=== PATIENT | male | born 1960 | race Caucasian/White ===

== ENCOUNTER 2016-10-01 10:06 | Day surgery (SDC) | payer OTHER ==
[2016-09-29 09:03] VITALS: BMI 35.2
[~2016-10-01 10:06] MED LIST: LACTATED RINGERS 1,000 ML IV SCH
[2016-10-01 10:31] VITALS: TEMP 98.3
[2016-10-01] MEDS ORDERED: LIDOCAINE 1% 20 ML VIAL (10MG/ML) FOR IV START INTRADERMA ONE (10:31)
[2016-10-01] MEDS ORDERED: fentaNYL (PF) 50 MCG/ML 2 ML AMP ONE (10:50)
[2016-10-01] MEDS ORDERED: TRIAMCINOLONE ACETONIDE 40 MG/ML 1 ML VIAL ONE (10:50)
[2016-10-01] MEDS ORDERED: MIDAZOLAM 2 MG/2 ML VIAL ONE (10:50)
[2016-10-01] MEDS ORDERED: KETOROLAC 30 MG/ML 1 ML VIAL IVP STA (11:18)
[2016-10-01] MEDS ORDERED: IV FLUID CONTINUATION 1,000 ML IV ONE (11:27)
--- NOTE | 2016-10-01 11:41 | FL ---
Fluoroscopy HISTORY: Pain 23 seconds fluoroscopy time supplied to the referring clinician. 1 intraoperative C-arm images docum ent the procedure. See dictated report from anesthesia.
[2016-10-01 11:44] VITALS: BP 111/56; PULSE 79; RESP 16
--- NOTE | 2016-10-01 13:08 | P.PCN ---
Date of Procedure: 10/01/16 Surgeon: Darnell Zhong Pathology: none sent Condition: stable Disposition: PACU Description of Procedure: PREOPERATIVE DIAGNOSIS: Lumbar spondylosis without myelopathy and facet arthropathy POSTOPERATIVE DIAGNOSIS: Lumbar spondylosis without myelopathy and facet arthropathy PROCEDURES: Left Radiofrequency thermocoagulation, L3, L4, and L5 medial branch , with fluoroscopic guidance. ANESTHESIA: 1% lidocaine plain; Conscious sedation with versed/fentanyl EBL: Minimal PROCEDURE INDICATION: The patient with low back pain secondary to lumbar arthropathy who had more than 50% relief of pain with previous diagnostic lumbar medial branch block with bupivacaine. Patient presents for RFA today; no use of blood thinners. PROCEDURE DESCRIPTION / TECHNIQUE: The patient was seen and identified in the preoperative area. Risks, benefits, complications, and alternatives were discussed with the patient (including but not limited to incomplete pain relief , bleeding, infection, nerve damage, and allergies to medications), the patient agreed to proceed with the procedure and her guardian had previously signed the informed consent after all questions were answered. Patient was taken to the OR and time out was completed to verify proper patient , position, laterality of pain, and allergies. Pt was placed in the prone position. IV was started. Vital signs remained stable throughout the procedure. A pillow was placed under the patients chest to decrease lordosis. The lumbosacral area was prepped and draped in the usual sterile fashion. Vital signs were closely monitored during the procedure. Conscious sedation was used during the procedure to decrease patients anxiety. Using AP and then oblique fluoroscopy, the eye of the Haile dog corresponding to the connection between the superior and transverse articular processes of left L4, L5 and top of the sacrum were identified, marked, and localized with 1% lidocaine. Subsequently, a 18 gauge, 100-mm radiofrequency cannula with a 10-mm active tip was advanced guided by fluoroscopy to each of the eyes of the Haile dog at left L3, L4, and L5 medial branches. Each site then underwent sensory testing at 50 Hz and 0 to 1 volt and motor testing at 2 Hz and 0 to 3 volt with local stimulation, but no radicular symptoms down the legs. Thereafter the left L3, L4, and L5 medial branch sites underwent radiofrequency thermocoagulation at 80 degrees Celsius for 90 seconds after injecting 0.5 ml of PF lidocaine 1%. After thermocoagulation, 1 ml of the block solution containing Kenalog 40 mg and 2 mL of preservative-free normal saline was injected at the left L3, L4, and L5 medial branch levels after negative aspiration of CSF and blood and with no paresthesias. Cannulas were retracted while injecting lidocaine 1% until the needles were removed. At the end of the procedure, the skin was cleansed and bandages were applied. COMPLICATIONS: No acute complications. DISPOSITION / PLANS: The patient was placed in a supine position and transferred to the recovery area in a stable condition for observation and was discharged from the recovery room after meeting discharge criteria. Home discharge instructions given to the patient by the staff. The patient was reexamined prior to discharge. The patient will schedule a follow up in clinic next as both right and left RFAs have been completed.
== END 2016-10-01 11:56 | disposition home or self-care (01) ==
LOC: ORPAIN 10:06
PROVIDERS: ATTEND Anesthesiology
DX: G89.29 Other chronic pain (principal); M54.5 Low back pain; M47.816 Spondylosis without myelopathy or radiculopathy, lumbar region; M46.96 Unspecified inflammatory spondylopathy, lumbar region; I10 Essential (primary) hypertension; I25.10 Atherosclerotic heart disease of native coronary artery without angina pectoris; I25.2 Old myocardial infarction; Z79.82 Long term (current) use of aspirin; Z79.899 Other long term (current) drug therapy
CPT/HCPCS: 64635; 64636 ×2; 99152; J2250; J3301; J3010; J1885

== ENCOUNTER 2016-11-10 06:50 | Day surgery (SDC) | payer OTHER ==
[2016-11-06 11:20] VITALS: BMI 33.7
[2016-11-10] MEDS ORDERED: LIDOCAINE 1% 20 ML VIAL (10MG/ML) FOR IV START SQ ONE (07:41)
[2016-11-10 07:54] VITALS: RESP 16; TEMP 98
[2016-11-10] MEDS ORDERED: LACTATED RINGERS 1,000 ML IV ONE ×2 (08:04→08:15)
[2016-11-10] MEDS ORDERED: MIDAZOLAM 2 MG/2 ML VIAL ONE (08:19)
[2016-11-10] MEDS ORDERED: TRIAMCINOLONE ACETONIDE 40 MG/ML 1 ML VIAL ONE (08:19)
[2016-11-10] MEDS ORDERED: fentaNYL (PF) 50 MCG/ML 2 ML AMP ONE (08:19)
--- NOTE | 2016-11-10 08:43 | P.PCN ---
Date of Procedure: 11/10/16 Surgeon: Darnell Zhong Pathology: none sent Condition: stable Disposition: PACU Description of Procedure: PREOPERATIVE DIAGNOSIS: Lumbar spondylosis without myelopathy and facet arthropathy POSTOPERATIVE DIAGNOSIS: Lumbar spondylosis without myelopathy and facet arthropathy PROCEDURES: Right Radiofrequency thermocoagulation, L3, L4, and L5 medial branch , with fluoroscopic guidance. ANESTHESIA: 1% lidocaine plain; Conscious sedation with versed/fentanyl EBL: Minimal PROCEDURE INDICATION: The patient with low back pain secondary to lumbar arthropathy who had more than 50% relief of pain with previous diagnostic lumbar medial branch block with bupivacaine. Patient presents for RFA today; no use of blood thinners. Patient is off Plavix permanently now. Good relief from left sided lumbar RFA. PROCEDURE DESCRIPTION / TECHNIQUE: The patient was seen and identified in the preoperative area. Risks, benefits, complications, and alternatives were discussed with the patient (including but not limited to incomplete pain relief , bleeding, infection, nerve damage, and allergies to medications), the patient agreed to proceed with the procedure and signed the consent after all questions were answered. Patient was taken to the OR and time out was completed to verify proper patient , position, laterality of pain, and allergies. Pt was placed in the prone position. IV was started. Vital signs remained stable throughout the procedure. A pillow was placed under the patients chest to decrease lordosis. The lumbosacral area was prepped and draped in the usual sterile fashion. Vital signs were closely monitored during the procedure. Conscious sedation was used during the procedure to decrease patients anxiety. Using AP and then oblique fluoroscopy, the eye of the Haile dog corresponding to the connection between the superior and transverse articular processes of right L4, L5 and top of the sacrum were identified, marked, and localized with 1% lidocaine. Subsequently, a 18 gauge, 100-mm radiofrequency cannula with a 10-mm active tip was advanced guided by fluoroscopy to each of the eyes of the Haile dog at right L3, L4, and L5 medial branches. Each site then underwent sensory testing at 50 Hz and 0 to 1 volt and motor testing at 2 Hz and 0 to 3 volt with local stimulation, but no radicular symptoms down the legs. Thereafter the right L3, L4, and L5 medial branch sites underwent radiofrequency thermocoagulation at 80 degrees Celsius for 90 seconds after injecting 0.5 ml of PF lidocaine 1%. After thermocoagulation, 1 ml of the block solution containing Kenalog 40 mg and 2 mL of preservative-free normal saline was injected at the right L3, L4, and L5 medial branch levels after negative aspiration of CSF and blood and with no paresthesias. Cannulas were retracted while injecting lidocaine 1% until the needles were removed. At the end of the procedure, the skin was cleansed and bandages were applied. COMPLICATIONS: No acute complications. DISPOSITION / PLANS: The patient was placed in a supine position and transferred to the recovery area in a stable condition for observation and was discharged from the recovery room after meeting discharge criteria. Home discharge instructions given to the patient by the staff. The patient was reexamined prior to discharge. The patient will schedule a follow up in the clinic in 4-6 weeks.
--- NOTE | 2016-11-10 08:59 | FL ---
EXAMINATION TYPE: FL guided pain mgmt statistic DATE OF EXAM: 11/10/2016 8:44 AM FLUOROSCOPY Fluoroscopy time of 8 seconds was used during lumbar radiofrequency ablation. 3 image/s document/s t he procedure.
[2016-11-10 09:10] VITALS: BP 109/67; PULSE 58
[2016-11-10] MEDS ORDERED: IV FLUID CONTINUATION 1,000 ML IV ONE (09:13)
== END 2016-11-10 10:11 | disposition home or self-care (01) ==
LOC: ORPAIN 06:50
PROVIDERS: ATTEND Anesthesiology
DX: G89.29 Other chronic pain (principal); M47.816 Spondylosis without myelopathy or radiculopathy, lumbar region; M46.96 Unspecified inflammatory spondylopathy, lumbar region; I10 Essential (primary) hypertension; I25.10 Atherosclerotic heart disease of native coronary artery without angina pectoris; Z95.5 Presence of coronary angioplasty implant and graft; K21.9 Gastro-esophageal reflux disease without esophagitis; Z79.82 Long term (current) use of aspirin; Z79.891 Long term (current) use of opiate analgesic; Z79.899 Other long term (current) drug therapy
CPT/HCPCS: 64635; 64636; 99152; J2250; J3301; J3010

== ENCOUNTER → 2016-12-28 | Outpatient (CLI) | payer OTHER ==
[2016-12-28 13:15] VITALS: BP 136/92; PULSE 74; RESP 16; TEMP 98.2
--- NOTE | 2016-12-28 13:31 | P.PN ---
Progress Note - Text Patient returns for followup for chronic back pain with radiation to to hips and neck pain with radiation to right arm. Patient recently underwent bilateral lumbar RFA, which provided nearly 100% relief for for interval since in his low back. He has started to notice neck pain with radiation to his left upper extremity. Patient [facility] for pain with good relief. Patient denies adverse drug effects from medications. Today, pt denies new-onset weakness, bowel/bladder incontinence, or any other signs or symptoms of cauda equina syndrome. There are no signs of acute intoxication, and no indications of medication diversion or overuse. In addition to above, 13-point review of systems is also negative for chest pain , shortness of breath, changes in vision, changes in hearing, new onset weakness , abdominal pain, diarrhea, extreme fatigue, malaise, fever, skin changes, homicidal or suicidal ideation, or bowel or bladder incontinence. Vital Signs: Reviewed in EMR Gen: WDWN, AAOx3, NAD HEENT: NCAT, EOMI, hearing grossly normal Pulm: resp unlabored Abd: soft, NT, ND Neck: supple, trachea midline TTP cervical spine +facet tenderness C-spine (mid to lower cervical facets worst) ROM in flexion lumbar spine: reduced ROM in extension lumbar spine: reduced Lumbar paravertebral tenderness: + Facet loading: + bilateral SI joint tenderness: + bilateral, R > L Ajay's test: + R > L Straight leg raise: neg Neuro: CN II-XII grossly intact Imaging: Reviewed in EMR Assessment: 1. lumbar spondylosis without myelopathy 2. chronic pain syndrome 3. cervical spondylosis without myelopathy Plan: 1. Explanation: Opioid and psychological risk scores were reviewed. Diagnoses , prognoses, and multiple treatment options including but not limited to physical therapy, interventional therapies, adjuvant medical therapies, narcotic medication therapies, and surgery were discussed with the patient and all questions were answered to the patient's satisfaction. 2. Opioid agreement: no opioids prescribed today 3. Counseling: The patient was counseled extensively on SMOKING CESSATION, BODY MASS INDEX, EXERCISE. Specifically, the patient was instructed regarding the importance of smoking cessation, obesity, and exercise in the context of both chronic pain and overall health. 4. Procedures: cervical MBB bilateral 5. Consultations: None 6. Investigations: None 7. Medications: none prescribed 8. Disposition: f/u for procedure as scheduled PQRS measures: 1-Patient's medications are documented in the chart. 2-Tobacco use is positive, counseling given 3-Patient has not had a pneumococcal vaccine. 4-Advanced care planning discussed, patient unable to give. 5-Opioid contract NOT signed with the patient as no opioids prescribed. 6-Pain positive, follow-up visit or procedure scheduled 7-Patient's blood pressure measured and documented, and patient will follow up with the primary care due to hypertension. 8-Patient's weight was measured, and body mass index ABOVE the normal limits, and counseling was done. Patient instructed to follow up with PCP. 9-Patient WAS NOT identified as an unhealthy alcohol user.
== END | disposition home or self-care (01) ==
LOC: PNWHC3 13:00
PROVIDERS: ATTEND Anesthesiology
DX: M47.816 Spondylosis without myelopathy or radiculopathy, lumbar region (principal); M47.812 Spondylosis without myelopathy or radiculopathy, cervical region; G89.4 Chronic pain syndrome
CPT/HCPCS: 99211

== ENCOUNTER 2017-03-10 11:50 | Inpatient (IN) | payer OTHER ==
--- NOTE | 2017-03-10 12:06 | ED ---
General Adult HPI - General Stated complaint: Chest pressure Time Seen by Provider: 03/10/17 11:56 Source: patient, EMS, RN notes reviewed, old records reviewed Mode of arrival: EMS Limitations: no limitations - History of Present Illness Initial comments: This is a 56-year-old male the ER with chest pain. Patient has history of chest pain history of coronary artery disease. Patient sent in from [place] for evaluation regarding his chest pain. Patient states his chest pain is having is left-sided and was sudden, is since been letting up. Patient denies cough or congestion. He does admit prior stent. No recent change in medications. Occasional smoker but he does take all medications as prescribed - Related Data Home Medications Medication Instructions Recorded Confirmed Lisinopril [Zestril] 20 mg PO QAM 03/27/14 03/10/17 Multivitamins, Thera [Multivitamin 1 tab PO DAILY 03/27/14 03/10/17 (formulary)] HYDROcodone/APAP 10-325MG [[place] 1 tab PO Q6H PRN 12/19/14 03/10/17 10-325] Aspirin 325 mg PO DAILY 03/10/17 03/10/17 Gabapentin 800 mg PO TID 03/10/17 03/10/17 [place]-3 Fatty Acids/Fish Oil [Fish 1 cap PO DAILY 03/10/17 03/10/17 Oil 1,000 mg Softgel] Simvastatin [Zocor] 40 mg PO HS 03/10/17 03/10/17 Previous Rx's Medication Instructions Recorded Nitroglycerin Sl Tabs [Nitrostat] 0.4 mg SUBLINGUAL Q5M PRN #25 tab 03/30/14 Allergies Allergy/AdvReac Type Severity Reaction Status Date / Time No Known Allergies Allergy Verified 03/10/17 12:21 Review of Systems ROS Statement: Those systems with pertinent positive or pertinent negative responses have been documented in the HPI. ROS Other: All systems not noted in ROS Statement are negative. Past Medical History Past Medical History: Coronary Artery Disease (CAD), Hyperlipidemia, Hypertension Additional Past Medical History / Comment(s): hx-vertigo (no problem now), degenerative disc back and neck History of Any Multi-Drug Resistant Organisms: None Reported Past Surgical History: Heart Catheterization With Stent, Orthopedic Surgery Additional Past Surgical History / Comment(s): right shoulder, 4 rotator cuff surgeries on right. Total reverse arthroplasty right shoulder. colonoscopy; pain procedures Past Anesthesia/Blood Transfusion Reactions: No Reported Reaction Date of Last Stent Placement:: 03/27/2014 Past Psychological History: No Psychological Hx Reported Smoking Status: Current some day smoker Past Alcohol Use History: Occasional Past Drug Use History: Marijuana - Past Family History Father Family Medical History: Coronary Artery Disease (CAD), Myocardial Infarction ([place] ) Additional Family Medical History / Comment(s): father had PVD. had surgery to repair it woke up from surgery and of a [place] Brother(s) Additional Family Medical History / Comment(s): III bypass Sister(s) Family Medical History: Myocardial Infarction ([place]) General Exam Limitations: no limitations General appearance: alert, in no apparent distress, anxious Head exam: Present: atraumatic, normocephalic, normal inspection Eye exam: Present: normal appearance, PERRL, EOMI. Absent: scleral icterus, conjunctival injection, periorbital swelling ENT exam: Present: normal exam, mucous membranes moist Neck exam: Present: normal inspection. Absent: tenderness, meningismus, lymphadenopathy Respiratory exam: Present: normal lung sounds bilaterally. Absent: respiratory distress, wheezes, rales, rhonchi, stridor Cardiovascular Exam: Present: regular rate, normal rhythm, normal heart sounds. Absent: systolic murmur, diastolic murmur, rubs, gallop, clicks GI/Abdominal exam: Present: soft, normal bowel sounds. Absent: distended, tenderness, guarding, rebound, rigid Extremities exam: Present: normal inspection, full ROM, normal capillary refill. Absent: tenderness, pedal edema, joint swelling, calf tenderness Back exam: Present: normal inspection Neurological exam: Present: alert, oriented X3, CN II-XII intact Psychiatric exam: Present: normal affect, normal mood Skin exam: Present: warm, dry, intact, normal color. Absent: rash Course Vital Signs 03/10/17 03/10/17 11:53 13:16 Temperature 98.9 F Pulse Rate 69 82 Respiratory 18 18 Rate Blood Pressure 146/83 123/73 O2 Sat by Pulse 96 97 Oximetry - Reevaluation(s) Reevaluation #1: 03/10/17 13:46 At this point patient still remains of chest pain, although it is improving, patient concern for resolution or closing of stent as the pain was the same EKG Findings - EKG Comments: EKG Findings:: EKG shows normal sinus rhythm at 74, MS 142, QRS 94, QTC 421 Medical Decision Making - Medical Decision Making 56 LDF for evaluation. Patient does A for evaluation regarding chest pain, history of stent history is coronary artery disease. Patient be admitted for cardiac observation - Lab Data Result diagrams: 03/10/17 12:10 03/10/17 12:10 Lab Results 03/10/17 03/10/17 03/10/17 Range/Units 12:10 12:10 12:10 WBC 8.7 (3.8-10.6) k/uL RBC 5.25 (4.30-5.90) m/uL Hgb 17.0 (13.0-17.5) gm/dL Hct 48.1 (39.0-53.0) % MCV 91.7 (80.0-100.0) fL MCH 32.4 (25.0-35.0) pg MCHC 35.3 (31.0-37.0) g/dL RDW 12.6 (11.5-15.5) % Plt Count 278 (150-450) k/uL Neutrophils % 55 % Lymphocytes % 31 % Monocytes % 6 % Eosinophils % 3 % Basophils % 1 % Neutrophils # 4.8 (1.3-7.7) k/uL Lymphocytes # 2.7 (1.0-4.8) k/uL Monocytes # 0.6 (0-1.0) k/uL Eosinophils # 0.3 (0-0.7) k/uL Basophils # 0.0 (0-0.2) k/uL PT (9.0-12.0) sec INR (<1.2) APTT (22.0-30.0) sec D-Dimer (<0.60) mg/L FEU Sodium 139 (137-145) mmol/L Potassium 4.7 (3.5-5.1) mmol/L Chloride 106 (98-107) mmol/L Carbon Dioxide 23 (22-30) mmol/L Anion Gap 10 mmol/L BUN 14 (9-20) mg/dL Creatinine 0.67 (0.66-1.25) mg/dL Est GFR (MDRD) Af Amer >60 (>60 ml/min/1.73 sqM) Est GFR (MDRD) Non-Af >60 (>60 ml/min/1.73 sqM) Glucose 101 H (74-99) mg/dL Calcium 9.5 (8.4-10.2) mg/dL Magnesium 2.0 (1.6-2.3) mg/dL Total Bilirubin 0.6 (0.2-1.3) mg/dL AST 21 (17-59) U/L ALT 39 (21-72) U/L Alkaline Phosphatase 53 (38-126) U/L Total Creatine Kinase 88 (55-170) U/L CK-MB (CK-2) 2.2 (0.0-2.4) ng/mL CK-MB (CK-2) Rel Index 2.5 Troponin I <0.012 (0.000-0.034) ng/mL NT-Pro-B Natriuret Pep pg/mL Total Protein 7.3 (6.3-8.2) g/dL Albumin 4.5 (3.5-5.0) g/dL Lipase 132 (23-300) U/L 03/10/17 03/10/17 Range/Units 12:10 12:10 WBC (3.8-10.6) k/uL RBC (4.30-5.90) m/uL Hgb (13.0-17.5) gm/dL Hct (39.0-53.0) % MCV (80.0-100.0) fL MCH (25.0-35.0) pg MCHC (31.0-37.0) g/dL RDW (11.5-15.5) % Plt Count (150-450) k/uL Neutrophils % % Lymphocytes % % Monocytes % % Eosinophils % % Basophils % % Neutrophils # (1.3-7.7) k/uL Lymphocytes # (1.0-4.8) k/uL Monocytes # (0-1.0) k/uL Eosinophils # (0-0.7) k/uL Basophils # (0-0.2) k/uL PT 10.3 (9.0-12.0) sec INR 1.0 (<1.2) APTT 22.1 (22.0-30.0) sec D-Dimer 0.50 (<0.60) mg/L FEU Sodium (137-145) mmol/L Potassium (3.5-5.1) mmol/L Chloride (98-107) mmol/L Carbon Dioxide (22-30) mmol/L Anion Gap mmol/L BUN (9-20) mg/dL Creatinine (0.66-1.25) mg/dL Est GFR (MDRD) Af Amer (>60 ml/min/1.73 sqM) Est GFR (MDRD) Non-Af (>60 ml/min/1.73 sqM) Glucose (74-99) mg/dL Calcium (8.4-10.2) mg/dL Magnesium (1.6-2.3) mg/dL Total Bilirubin (0.2-1.3) mg/dL AST (17-59) U/L ALT (21-72) U/L Alkaline Phosphatase (38-126) U/L Total Creatine Kinase (55-170) U/L CK-MB (CK-2) (0.0-2.4) ng/mL CK-MB (CK-2) Rel Index Troponin I (0.000-0.034) ng/mL NT-Pro-B Natriuret Pep 16 pg/mL Total Protein (6.3-8.2) g/dL Albumin (3.5-5.0) g/dL Lipase (23-300) U/L - Radiology Data Radiology results: report reviewed (Chest x-ray is negative for acute disease), image reviewed Critical Care Time Critical Care Time: Yes Total Critical Care Time: 31 Disposition Clinical Impression: Unstable angina pectoris, Chest pain Disposition: ADMITTED IP TO THIS [facility] Condition: Undetermined Instructions: Chest Pain (ED) Referrals: Maximino Burrows DO [Primary Care Provider] - 1-2 days
[2017-03-10 12:34] LABS: Basophils % (A) 1 %; CH 32.1; CHCM 35.2; Eosinophils # (A) 0.3 k/uL (0-0.7); Eosinophils % (A) 3 %; HCT 48.1 % (39.0-53.0); HDW 2.55; Luc # (Auto) 0.34; Luc % (Auto) 4; Lymphocytes # (A) 2.7 k/uL (1.0-4.8); Lymphocytes % (A) 31 %; MCH 32.4 pg (25.0-35.0); MCHC 35.3 g/dL (31.0-37.0); MCV 91.7 fL (80.0-100.0); Mean Platelet Volume 6.7; Monocytes # (A) 0.6 k/uL (0-1.0); Monocytes % (A) 6 %; Neutrophils # (A) 4.8 k/uL (1.3-7.7); Neutrophils % (A) 55 %; RBC 5.25 m/uL (4.30-5.90); RDW 12.6 % (11.5-15.5); WBC 8.7 k/uL (3.8-10.6); WBC (Perox) 8.23
[2017-03-10 12:45] LABS: ALT 39 U/L (21-72); AST 21 U/L (17-59); Alkaline Phosphatase 53 U/L (38-126); Anion Gap 10 mmol/L; Blood Urea Nitrogen 14 mg/dL (9-20); Calcium 9.5 mg/dL (8.4-10.2); Carbon Dioxide 23 mmol/L (22-30); Chloride 106 mmol/L (98-107); Glucose 101 mg/dL (74-99); Non-African American GFR(MDRD) >60 (>60 ml/min/1.73 sqM); Potassium 4.7 mmol/L (3.5-5.1); Sodium 139 mmol/L (137-145); Total Bilirubin 0.6 mg/dL (0.2-1.3); Total Protein 7.3 g/dL (6.3-8.2)
--- NOTE | 2017-03-10 12:50 | XR ---
EXAMINATION TYPE: XR chest 2V DATE OF EXAM: 03/10/2017 COMPARISON: 05/27/2015 INDICATION: Chest pain TECHNIQUE: Frontal and lateral views of the chest are obtained. FINDINGS: The heart size is normal. The pulmonary vasculature is normal. The lungs are clear. Right shoulder prosthesis is present. IMPRESSION: 1. No acute pulmonary process.
[2017-03-10 12:52] LABS: Creatine Kinase 88 U/L (55-170)
[2017-03-10 13:06] LABS: Creatine Kinase MB 2.2 ng/mL (0.0-2.4); Troponin I <0.012 ng/mL (0.000-0.034)
[2017-03-10] MEDS ORDERED: HYDROcodone/APAP 10-325MG 1 EACH TAB PO STA (13:40)
[2017-03-10] MEDS ORDERED: GABAPENTIN 400 MG CAP PO STA (13:40)
[2017-03-10] MEDS ORDERED: NITROGLYCERIN SL TABS 0.4 MG TAB SUBLINGUAL PRN (13:44)
[2017-03-10] MEDS ORDERED: MORPHINE SULFATE 4 MG/ML SYRINGE IV PRN (13:44)
[2017-03-10 13:45] LABS: Partial Thromboplastin Time 22.1 sec (22.0-30.0); Prothrombin Time 10.3 sec (9.0-12.0)
--- NOTE | 2017-03-10 15:22 | P.CRDCN ---
History of Present Illness Consult date: 03/10/17 History of present illness: This is a 56-year-old pleasant male. Past medical history significant for CAD with stent to the mid LAD, essential hypertension and hyperlipidemia. Patient presents with complaints of intermittent sharp precordial chest pain. He states this pain comes and goes very quickly and is not associated with activity. He states when this comes about he becomes mildly short of breath, diaphoretic and nauseous. He states he went and saw his PCP this morning and they sent him here for further evaluation. EKG done shows from a sinus mechanism, rate of 74 beats per minute with nonspecific T-wave abnormality. Troponins are normal x 1. Chest x-ray showed no cardiopulmonary process. Most recent echo dated 11/27/2016 performed in the office indicates preserved left ventricular function with an ejection fraction of 55% with mild concentric left ventricular hypertrophy. Patient also had a Lexiscan 11/03/2016 which was negative for ischemia. His most recent cardiac catheterization was performed in May 2015 which showed a patent mid LAD stent, otherwise normal coronary arteries. Review of Systems Extensive review of systems performed, negative except mentioned in HPI. Past Medical History Past Medical History: Coronary Artery Disease (CAD), Hyperlipidemia, Hypertension Additional Past Medical History / Comment(s): hx-vertigo (no problem now), degenerative disc back and neck History of Any Multi-Drug Resistant Organisms: None Reported Past Surgical History: Heart Catheterization With Stent, Orthopedic Surgery Additional Past Surgical History / Comment(s): right shoulder, 4 rotator cuff surgeries on right. Total reverse arthroplasty right shoulder. colonoscopy; pain procedures Past Anesthesia/Blood Transfusion Reactions: No Reported Reaction Date of Last Stent Placement:: 03/27/2014 Past Psychological History: No Psychological Hx Reported Smoking Status: Current some day smoker Past Alcohol Use History: Occasional Past Drug Use History: Marijuana - Past Family History Father Family Medical History: Coronary Artery Disease (CAD), Myocardial Infarction (AL ) Additional Family Medical History / Comment(s): father had PVD. had surgery to repair it woke up from surgery and of a AL Brother(s) Additional Family Medical History / Comment(s): III bypass Sister(s) Family Medical History: Myocardial Infarction (AL) Medications and Allergies Home Medications Medication Instructions Recorded Confirmed Type Lisinopril [Zestril] 20 mg PO QAM 03/27/14 03/10/17 History Multivitamins, Thera [Multivitamin 1 tab PO DAILY 03/27/14 03/10/17 History (formulary)] Nitroglycerin Sl Tabs [Nitrostat] 0.4 mg SUBLINGUAL Q5M PRN #25 tab 03/30/1412/19 Rx HYDROcodone/APAP 10-325MG [[place] 1 tab PO Q6H PRN 12/19/14 03/10/17 History 10-325] Aspirin 325 mg PO DAILY 03/10/17 03/10/17 History Gabapentin 800 mg PO TID 03/10/17 03/10/17 History [place]-3 Fatty Acids/Fish Oil [Fish 1 cap PO DAILY 03/10/17 03/10/17 History Oil 1,000 mg Softgel] Simvastatin [Zocor] 40 mg PO HS 03/10/17 03/10/17 History Allergies Allergy/AdvReac Type Severity Reaction Status Date / Time No Known Allergies Allergy Verified 03/10/17 12:21 Physical Exam Vitals: Vital Signs Temp Pulse Pulse Resp BP BP Pulse Ox 03/10/17 14:23 98.0 F 72 18 140/80 96 03/10/17 14:08 97.9 F 77 18 123/80 98 03/10/17 13:16 82 18 123/73 97 03/10/17 11:53 98.9 F 69 18 146/83 96 Intake and Output 03/09/17 03/10/17 03/10/17 22:59 06:59 14:59 Other: Weight 107.7 kg Patient Weight 03/11/17 06:59 Weight 107.7 kg GENERAL: This is a 56-year-old pleasant gentleman in no apparent distress at the time of my examination. Obese. HEENT: Head is atraumatic, normocephalic. Pupils are equal, round. Sclerae anicteric. Conjunctivae are clear. Mucous membranes of the mouth are moist. Neck is supple. There is no jugular venous distention. No carotid bruit is heard. LUNGS: Clear to auscultation no wheezes, rales or rhonchi. No chest wall tenderness is noted on palpation or with deep breathing. HEART: Regular rate and rhythm without murmurs, rubs or gallops. S1 and S2 heard. ABDOMEN: Soft, nontender. Bowel sounds are heard. No organomegaly noted. EXTREMITIES: 2+ peripheral pulses with no evidence of peripheral edema and no calf tenderness noted. NEUROLOGIC: Patient is awake, alert and oriented x3. Results 03/10/17 12:10 03/10/17 12:10 Cardiac Enzymes 03/10/17 03/10/17 Range/Units 12:10 12:10 AST 21 (17-59) U/L CK-MB (CK-2) 2.2 (0.0-2.4) ng/mL Troponin I <0.012 (0.000-0.034) ng/mL Coagulation 03/10/17 Range/Units 12:10 PT 10.3 (9.0-12.0) sec APTT 22.1 (22.0-30.0) sec CBC 03/10/17 Range/Units 12:10 WBC 8.7 (3.8-10.6) k/uL RBC 5.25 (4.30-5.90) m/uL Hgb 17.0 (13.0-17.5) gm/dL Hct 48.1 (39.0-53.0) % Plt Count 278 (150-450) k/uL Comprehensive Metabolic Panel 03/10/17 Range/Units 12:10 Sodium 139 (137-145) mmol/L Potassium 4.7 (3.5-5.1) mmol/L Chloride 106 (98-107) mmol/L Carbon Dioxide 23 (22-30) mmol/L BUN 14 (9-20) mg/dL Creatinine 0.67 (0.66-1.25) mg/dL Glucose 101 H (74-99) mg/dL Calcium 9.5 (8.4-10.2) mg/dL AST 21 (17-59) U/L ALT 39 (21-72) U/L Alkaline Phosphatase 53 (38-126) U/L Total Protein 7.3 (6.3-8.2) g/dL Albumin 4.5 (3.5-5.0) g/dL Current Medications Generic Name Dose Route Start Last Admin Trade Name Freq PRN Reason Stop Dose Admin Aspirin 325 mg 03/11/17 09:00 Aspirin PO DAILY AMEENA Morphine Sulfate 4 mg 03/10/17 13:44 Morphine Sulfate (Inj) IV Q5M PRN Chest Pain Nitroglycerin 0.4 mg 03/10/17 13:44 Nitrostat SUBLINGUAL Q5M PRN Chest Pain Intake and Output 03/09/17 03/10/17 03/10/17 22:59 06:59 14:59 Other: Weight 107.7 kg Patient Weight 03/11/17 06:59 Weight 107.7 kg 03/10/17 12:10 03/10/17 12:10 EKG Interpretations (text) EKG indicates normal sinus mechanism with nonspecific ST and T-wave abnormalities with a rate of 74 bpm. Assessment and Plan Plan: ASSESSMENT 1. Chest pain, atypical. 2. Coronary artery disease, history of stent to the mid LAD 3. Essential hypertension 4. Dyslipidemia PLAN Repeat EKG in the morning, continuous telemetry monitoring, obtain 2 more sets of cardiac enzymes. Nurse Practitioner note has been reviewed, I agree with a documented findings and plan of care. Patient was seen and examined.
[2017-03-10] MEDS ORDERED: HEPARIN SODIUM,PORCINE 5,000 UNIT/ML 1 ML VIAL IV PRN (16:56)
[2017-03-10] MEDS ORDERED: HEPARIN SODIUM,PORCINE 5,000 UNIT/ML 1 ML VIAL IV ONE (16:56)
[2017-03-10] MEDS ORDERED: HEPARIN SODIUM,PORCINE/D5W PMX 25,000 UNIT in DEXTROSE/WATER 1 500ML.BAG IV SCH (17:00)
[2017-03-10] MEDS ORDERED: ALPRAZolam 0.25 MG TAB PO PRN (17:29)
[2017-03-10] MEDS ORDERED: TEMAZEPAM 15 MG CAP PO PRN (17:29)
[2017-03-10] MEDS ORDERED: SODIUM CHLORIDE 0.9% 1,000 ML IV SCH (17:30)
[2017-03-10] MEDS: HYDROmorphone 1 MG/ML 1 ML SYRINGE IVP PRN ×2 (18:36→22:55)
[2017-03-10] MEDS: NITROGLYCERIN OINT 1 INCH/GM PACKET TOPICAL SCH (18:47)
[2017-03-10 19:44] LABS: Creatine Kinase 80 U/L (55-170)
[2017-03-10 19:55] LABS: Creatine Kinase MB 1.9 ng/mL (0.0-2.4); Troponin I <0.012 ng/mL (0.000-0.034)
[2017-03-10] MEDS: HYDROcodone/APAP 10-325MG 1 EACH TAB PO PRN (20:11)
[2017-03-10] MEDS: GABAPENTIN 400 MG CAP PO SCH (20:12)
[2017-03-10] MEDS: METOPROLOL TARTRATE 12.5 MG TAB PO SCH (20:14)
[2017-03-10] MEDS ORDERED: ATORVASTATIN 20 MG TAB PO SCH (21:00)
[2017-03-11 01:03] LABS: Creatine Kinase 87 U/L (55-170)
[2017-03-11 01:16] LABS: Creatine Kinase MB 1.9 ng/mL (0.0-2.4); Troponin I <0.012 ng/mL (0.000-0.034)
[2017-03-11] MEDS: NITROGLYCERIN OINT 1 INCH/GM PACKET TOPICAL SCH ×3 (01:43→13:12)
--- NOTE | 2017-03-11 05:43 | HP ---
HISTORY AND PHYSICAL CHIEF COMPLAINT: Chest pain. HISTORY OF PRESENT ILLNESS: This 56-year-old gentleman with a past medical history of CAD, stent, history of hypertension, hyperlipidemia, history of nicotine dependence, history of THC being followed by Dr. Burrows in [place] [facility] in the outpatient setting is apparently having on and off chest discomfort in the anterior part of the chest, which lasted for a few minutes and relieved by itself without any radiation and without any other associated symptoms. Because of increased symptoms, patient came to [facility] and admitted for evaluation and treatment. The patient also noted some relation with smoking. Otherwise there is no history of any fever, rigors. No history of any headache, loss of consciousness or seizures. Patient apparently smokes about 1 pack per week mainly only on the weekends. PAST MEDICAL HISTORY: History of CAD, stent, hypertension, hyperlipidemia, history of vertigo. MEDICATIONS PRIOR TO ADMISSION: 1. [place]-3 fatty acids 1 p.o. daily. 2. Nitrostat 0.4 daily. 3. Multivitamin 1 p.o. daily. 4. Gabapentin 800 mg p.o. t.i.d. 5. Aspirin 325 mg daily. 6. Zocor 40 mg q.h.s. 7. Zestril 20 mg q.a.m. 8. [place] 10 mg q.6 p.r.n. ALLERGIES: None. FAMILY HISTORY: History of heart disease in the father who at the age of 60, in the late 60s and brother who had heart attack in his late 50s. SOCIAL HISTORY: History of alcohol and smoking mainly on the weekends. History of THC. REVIEW OF SYSTEMS: ENT: No diminished hearing or vision. CARDIOVASCULAR: As mentioned earlier. RESPIRATORY: As mentioned earlier. GI: No nausea, vomiting. : No dysuria. NERVOUS SYSTEM: No numbness or weakness. ALLERGY/IMMUNOLOGY: No asthma or hayfever. MUSCULOSKELETAL: As mentioned earlier. HEMATOLOGY/ONCOLOGY: No history of anemia. ENDOCRINE: No history of diabetes or hypothyroidism. CONSTITUTIONAL: As mentioned earlier. DERMATOLOGY: Negative. RHEUMATOLOGY: Negative. PSYCHIATRY: As mentioned earlier. PHYSICAL EXAMINATION: The patient is alert and oriented x3. The pulse is 72, blood pressure 140/80, respirations 18, temperature 98 degrees, pulse ox 96% on room air. HEENT: Conjunctivae normal. NECK: No jugular venous distention. CARDIOVASCULAR: S1 and S2 muffled. RESPIRATORY: Breath sounds diminished at the bases. No rhonchi and no crackles. ABDOMEN: Soft, nontender, no mass palpable. No hepatomegaly. LEGS: No edema. No swelling. NERVOUS SYSTEM; Higher functions as mentioned. Moves all 4 limbs. No focal motor or sensory deficits. LYMPHATICS: No lymphadenopathy of the neck, axillae or groin. SKIN: No ulcers, rashes or bleeding. LAB: The CBC is within normal limits. CMP glucose 101. Troponin is less than 0.012. The EKG showed ST-T changes. ASSESSMENT: 1. Chest pain, possible unstable angina. 2. History of coronary artery disease, stent. 3. History of hypertension. 4. Hyperlipidemia. 5. History of nicotine dependence. 6. History of degenerative joint disease. 7. Family history of coronary artery disease. RECOMMENDATIONS AND DISCUSSION: In this 56-year-old gentleman who presented with multiple medical problems will monitor the patient closely. Continue the current medications. Continue the symptomatic treatment. We will continue with unstable angina protocol, otherwise antiplatelet agents, IV heparin. Cardiology consultation, rule out myocardial infarction. Otherwise I would recommend continue the current medication and possible cardiac catheterization versus stress test. Guarded prognosis because of multiple complex medical issues. Further recommendations to follow. A copy of dictation forwarded to Dr. Burrows who is the primary care physician. Discussed with the patient, understands and agrees. ORTEGA / DINHN: [id number] /
[2017-03-11] MEDS ORDERED: PANTOPRAZOLE 40 MG TABLET PO SCH (07:30)
[2017-03-11] MEDS: METOPROLOL TARTRATE 12.5 MG TAB PO SCH (07:58)
[2017-03-11] MEDS: GABAPENTIN 400 MG CAP PO SCH ×2 (07:58→16:24)
[2017-03-11] MEDS ORDERED: ATORVASTATIN 80 MG TAB PO STA (08:21)
[2017-03-11] MEDS ORDERED: SODIUM CHLORIDE 0.9% 1,000 ML in EMPTY BAG 1 BAG IV ONE (08:21)
[2017-03-11] MEDS: HYDROcodone/APAP 10-325MG 1 EACH TAB PO PRN ×2 (08:56→16:21)
[2017-03-11] MEDS ORDERED: NICOTINE 14MG/24HR PATCH TRANSDERM SCH (09:00)
[2017-03-11] MEDS ORDERED: ASPIRIN 325 MG TAB PO SCH (09:00)
[2017-03-11] MEDS ORDERED: LISINOPRIL 20 MG TAB PO SCH (09:00)
--- NOTE | 2017-03-11 09:23 | PN ---
PROGRESS NOTE Mr. Colin was seen by my nurse practitioner, Lima Fernandez. He was here with chest discomfort. Initial troponin is normal. He has history of previous LAD stent in 2013 that was patent a year later. Symptoms of chest discomfort with some mild diaphoresis suggest myocardial ischemia. There are also EKG changes which are nonspecific but ischemia cannot be excluded. He is hemodynamically stable. Free of chest pain. Resting comfortably. PHYSICAL EXAM: Unremarkable. I am recommending that we initiate him on IV heparin, continue his medications including beta blockers, keep him n.p.o. and consider cardiac catheterization tomorrow. Serial troponins will be performed. Rationale, risks, benefits, options related to coronary angiography was explained to the patient. Dr. Kinsey would perform the procedure tomorrow. Patient and his family are in agreement and wished to proceed with the procedure which will most likely be performed tomorrow but I will make a definitive decision based on his clinical course and troponin numbers. MMODL / IJN: [id number] /
[2017-03-11 09:40] LABS: Aty Lym Flag Slight; CH 31.7; CHCM 33.4; HDW 2.54; HGB 15.7 gm/dL (13.0-17.5); MCH 31.8 pg (25.0-35.0); MCHC 33.5 g/dL (31.0-37.0); MCV 95.1 fL (80.0-100.0); Mean Platelet Volume 6.6; RBC 4.94 m/uL (4.30-5.90); RDW 12.5 % (11.5-15.5); WBC 8.2 k/uL (3.8-10.6); WBC (Perox) 8.47
[2017-03-11 09:50] LABS: Anion Gap 8 mmol/L; Blood Urea Nitrogen 18 mg/dL (9-20); Calcium 8.9 mg/dL (8.4-10.2); Carbon Dioxide 24 mmol/L (22-30); Chloride 104 mmol/L (98-107); Cholesterol 173 mg/dL (<200); Glucose 101 mg/dL (74-99); HDL Cholesterol 42 mg/dL (40-60); Non-African American GFR(MDRD) >60 (>60 ml/min/1.73 sqM); Potassium 4.8 mmol/L (3.5-5.1); Sodium 136 mmol/L (137-145)
[2017-03-11] MEDS ORDERED: LIDOCAINE 2% INJ 20 MG/ML (20 ML MDV) ONE (09:56)
[2017-03-11] MEDS ORDERED: IV FLUID CONTINUATION 1,000 ML IV ONE (10:04)
[2017-03-11] MEDS ORDERED: diphenhydrAMINE 50 MG/ML 1 ML VIAL ONE (10:19)
[2017-03-11] MEDS ORDERED: MIDAZOLAM 2 MG/2 ML VIAL ONE (10:19)
[2017-03-11] MEDS ORDERED: diphenhydrAMINE 50 MG/ML 1 ML VIAL IVP ONE (10:25)
[2017-03-11] MEDS ORDERED: fentaNYL (PF) 50 MCG/ML 2 ML AMP ONE (10:26)
[2017-03-11] MEDS ORDERED: MIDAZOLAM 2 MG/2 ML VIAL IV ONE (10:27)
[2017-03-11] MEDS ORDERED: fentaNYL (PF) 50 MCG/ML 2 ML AMP IV ONE (10:28)
[2017-03-11] MEDS ORDERED: LIDOCAINE 2% INJ 20 MG/ML SQ ONE (10:32)
[2017-03-11] MEDS ORDERED: RX INFO: IV CONTRAST WAS GIVEN 1 EACH MISC MISCELLANE PRN (10:50)
[2017-03-11] MEDS ORDERED: IOHEXOL 350 MG/ML 125ML BOTTLE INJ ONE (10:50)
--- NOTE | 2017-03-11 10:55 | P.OP ---
Date of Procedure: 03/11/17 Preoperative Diagnosis: Postoperative Diagnosis: Procedure(s) Performed: Implants: Indications for Procedure: Unstable angina Operative Findings: Referring Physician: [Ez] Indication:un Stable angina Procedure Note: [] After obtaining informed consent left heart catheterization and coronary angiogram were performed via the right femoral artery using standard Tere catheters. Patient tolerated the procedure well without any obvious immediate complications. A femoral angiogram was obtained and decision was made for manual hemostasis There was a 60-70% stenosis involving the common femoral artery. Findings: [] Hemodynamics: Left ventricular end-diastolic pressure is elevated at 24 mm Left Ventriculogram: [Not performed] Angiographic Data:] #1 Left Main Coronary Artery: [Normal size vessel and is free of stenosis] #2 Left Anterior Descending Coronary Artery: There is a mild atherosclerotic plaque in mid LAD unchanged compared to prior cardiac catheterization #3 Circumflex Coronary Artery: [Nondominant vessel and is free of stenosis] #4 Right Coronary Artery: [Large dominant vessel and is free of stenosis] Conclusions: #1: Mild nonobstructive coronary artery disease involving mid LAD #2: Elevated left ventricle end-diastolic pressure #3 right common femoral artery stenosis Plan: Patient's chest discomfort is noncardiac in origin Has evidence of peripheral vascular disease with a stenosis in the common femoral artery this will be addressed down the road Description of Procedure:
[2017-03-11] MEDS ORDERED: SODIUM CHLORIDE 0.9% 1,000 ML IV SCH (11:00)
[2017-03-11] MEDS ORDERED: MULTIVITAMINS, THERA 1 EACH TAB PO SCH (12:00)
[2017-03-11 12:20] LABS: Add Differential Manual Differential
[2017-03-11 12:22] LABS: Myelocytes % 1 %; Nucleated Red Blood Cells 0 /100 WBC (0-0)
[2017-03-11 12:23] LABS: Manual Review Performed; Total Cells Counted 200
[2017-03-11] MEDS: HYDROmorphone 1 MG/ML 1 ML SYRINGE IVP PRN ×2 (12:26→19:05)
--- NOTE | 2017-03-11 15:42 | US ---
EXAMINATION TYPE: US abdomen limited DATE OF EXAM: 03/11/2017 COMPARISON: NONE CLINICAL HISTORY: r/o retroperitoneal bleed post cardiac cath, back pain. No free fluid visualized at this time. IMPRESSION: No hemorrhage or free fluid identified
[2017-03-11 15:49] VITALS: TEMP 98.2
[2017-03-11 19:47] VITALS: BP 140/64; PULSE 77; RESP 16
--- NOTE | 2017-03-11 21:32 | PN ---
PROGRESS NOTE DATE OF SERVICE: 03/11/2017 This 56-year-old gentleman who was admitted with chest pain also underwent a cardiac catheterization today. The cardiac catheter showed mild atherosclerotic plaque in the LAD unchanged from previously. Otherwise, the patient was also suspected to have right common femoral artery stenosis. No chest pain or palpitations. No fever. EXAM: Alert and oriented x 3. Pulse 70, blood pressure 100/65, respirations 16, temperature 97.9, pulse ox 92% on 2L. HEENT: Conjunctivae normal. NECK: No jugular venous distention. CARDIAC: S1, S2 muffled. RESPIRATORY: Breath sounds diminished in the bases. A few scattered rhonchi. No crackles. ABDOMEN: Soft, nontender. No mass palpable. Status post cardiac cath on the left groin. NERVOUS SYSTEM: No focal deficits. LABS: At this time show CBC within normal limits. Otherwise sodium 136 and triglycerides of 217. ASSESSMENT: 1. Chest pain, possible unstable angina. 2. History of coronary artery disease with stent. 3. Status post cardiac catheterization showing mild coronary artery disease. 4. Right femoral artery stenosis and peripheral vascular disease. 5. History of hypertension. 6. Hyperlipidemia. 7. History of continued ongoing nicotine dependence. 8. History of degenerative joint disease. 9. Family history of coronary artery disease. RECOMMENDATION AND DISCUSSION: Recommend to continue current medications and symptomatic treatment with antiplatelet agents. Continue with current medications. Closely follow with Cardiology. The prognosis is guarded. Smoking cessation has been recommended. IV fluids have also been given. Will follow the patient closely with Cardiology. Further recommendations to follow. Prognosis guarded. MMODL / IJN: [id number] /
--- NOTE | 2017-03-14 11:31 | DS ---
DISCHARGE SUMMARY FINAL DIAGNOSES: 1. Chest pain possible unstable angina. 2. History of coronary artery disease, stent. 3. Status post cardiac cath showing mild coronary artery disease. 4. Right femoral artery stenosis and peripheral vascular disease. 5. History of hypertension. 6. Hyperlipidemia. 7. Continued ongoing nicotine dependence. 8. History of degenerative joint disease. 9. Family history of coronary artery disease. DISCHARGE DISPOSITION: The patient being discharged in stable condition with guarded prognosis. HISTORY OF PRESENT ILLNESS: This 56 -year-old gentleman with past medical history of multiple medical problems, admitted with chest pain. Cardiology performed a cardiac cath. Findings as above. Cardiology cleared the patient for discharge. PHYSICAL EXAMINATION: On exam, vital signs are stable. Cardiovascular S1, S2 muffled. Abdomen is soft. Central nervous system: No focal deficits. DISCHARGE ADVICE: 1. Diet is cardiac diet. 2. Activity limited until follow up. 3. Follow up with Dr. Burrows in 2-3 days. 4. Follow up with Dr. Kinsey as advised. MEDICATIONS: 1. Ecotrin 325 mg p.o. daily. 2. Gabapentin 800 mg p.o. t.i.d. 3. Hydrocodone 10 mg q.6h p.r.n. 4. Zestril 20 mg q.a.m. 5. Multivitamin 1 p.o. daily. 6. Habitrol 14 daily. 7. Nitro 0.4 sublingual p.r.n. 8. [place]-3 fatty acids one p.o. daily. 9. Zocor 40 mg q.h.s. Please send a copy of dictation to my office and as well as Dr. Burrows's office. MMODL / IJN: [id number] /
== END 2017-03-11 19:45 | disposition home or self-care (01) | DRG 287 ==
LOC: EC 11:50 → 3OBS 13:44 → OBSVTOIN 03-11 15:03
PROVIDERS: ADMIT Hospitalist; ATTEND Hospitalist
PROC: B2111ZZ Fluoroscopy of Multiple Coronary Arteries using Low Osmolar Contrast (ICD-10-PCS; 2017-03-11)
PROC: 4A023N7 Measurement of Cardiac Sampling and Pressure, Left Heart, Percutaneous Approach (ICD-10-PCS; principal; 2017-03-11 08:30)
DX: I25.110 Atherosclerotic heart disease of native coronary artery with unstable angina pectoris (principal); I10 Essential (primary) hypertension; E78.5 Hyperlipidemia, unspecified; F17.200 Nicotine dependence, unspecified, uncomplicated; I70.201 Unspecified atherosclerosis of native arteries of extremities, right leg; I73.9 Peripheral vascular disease, unspecified; Z79.82 Long term (current) use of aspirin; Z79.899 Other long term (current) drug therapy; Z95.5 Presence of coronary angioplasty implant and graft; Z82.49 Family history of ischemic heart disease and other diseases of the circulatory system
CPT/HCPCS: 36415; 71020; 76705; 80048; 80053; 80061; 82550; 82553; 83690; 83735; 83880; 84484; 85025; 85379; 85610; 85730; 93005; 93458; 94760; 96361; 96365; 96366; 96375; 96376; 99291

== ENCOUNTER → 2018-08-23 | Outpatient (CLI) | payer OTHER ==
[2018-08-23 13:05] VITALS: BP 141/79; PULSE 86; RESP 16; TEMP 98.2
--- NOTE | 2018-08-23 13:37 | P.PN ---
Subjective Progress Note Date: 08/23/18 Huy is a 49-year-old gentleman who presents today for continued low back pain. We have seen him in the past for his low back pain and he has had successful medial branch blocks and radiofrequency ablations. Over the past couple years he was sent to see couple different surgeons for his low back pain. One is surgery recommend at surgery on his low back a second surgery did not recommend surgery and he wants to avoid having surgery moving forward. He is here today to evaluate his lumbar spine for interventional procedures. He doesn't like taking very much pain medications. He is back pain is across his low back and into his thighs. He denies any radicular symptoms shooting into his legs but can happen with certain movements. He feels that his back pain causing muscle pain during the day is worse towards the end of the day. He is disabled and does not work at this time. He is a . Objective - Vital Signs Vital signs: Vital Signs Temp 98.2 F 08/23/18 12:56 Pulse 86 08/23/18 12:56 Resp 16 08/23/18 12:56 BP 141/79 08/23/18 12:56 Pulse Ox 98 08/23/18 12:56 Intake & Output 08/22/18 08/23/18 08/23/18 18:59 06:59 18:59 Weight 106.594 kg - Exam General: Awake and alert oriented 3 no distress Respiratory exam: No audible wheezing no accessory muscle usage Cardiovascular exam: regular rate, palpable bilateral pulses, no lower extremity edema Abdominal exam: No distention nontender to palpation Cervical spine: Normal alignment, Spurling's negative, facet loading negative Lumbar spine: Loss of lumbar lordosis, normal alignment, tender to palpation over bilateral paraspinal muscles, facet loading is positive bilaterally. Straight leg raise is negative. Sacroiliac joints: Nontender to palpation, GREGORY is negative, [place] negative Neuro exam: Normal sensation in bilateral upper extremities, deep tendon reflexes are 2+ bilateral upper extremities. Normal sensation in bilateral lower extremities. Deep tendon reflexes are 1+ bilateral hamstrings 2+ Achilles reflex Psych exam: Cooperative, appropriate mood Assessment and Plan Assessment: Lumbar spondylosis without myelopathy Plan: After examination and review of the medical records and discussion with the patient I feel the best course of action would be to trial a medial branch block with local anesthetic only and see if the patient has any improvement in his pain. I discussed with the patient the risks benefits and alternatives to the procedure and discussed as a three-step process if we decide to move the radiofrequency ablation. He's had good relief with the radiofrequency ablation in the past and would like to move forward at this time. We'll plan to do bilateral L3 4, L4 5, L5-S1 levels. Patient has significant disc bulging and neural foraminal stenosis but given the fact he does not have significant radicular symptoms we've elected to go the medial branch block first
== END ==
LOC: PNWHC3 12:37
PROVIDERS: ATTEND Hospitalist
DX: M47.816 Spondylosis without myelopathy or radiculopathy, lumbar region (principal)
CPT/HCPCS: 99211

== ENCOUNTER 2018-09-13 09:40 | Observation (INO) | payer OTHER ==
[2018-09-13] MEDS ORDERED: NITROGLYCERIN OINT 1 INCH/GM PACKET TOPICAL STA (09:59)
--- NOTE | 2018-09-13 10:07 | ED ---
General Adult HPI - General Chief complaint: Chest Pain Stated complaint: Chest pain Time Seen by Provider: 09/13/18 09:40 Source: patient, EMS, RN notes reviewed Mode of arrival: EMS Limitations: no limitations - History of Present Illness Initial comments: This is a 57-year-old male who presents emergency Department complaining of chest pain. Patient states he's been having left arm pain which she describes as pressure for the last week. Patient states it's intermittent in nature. Patient states this morning he had chest pain and he describes that as a heavy pressure on his chest. Patient denies any shortness of breath or difficulty breathing. Patient denies any diaphoretic episodes. Patient states he is nauseated but has not vomited. Patient states he has past history of a cardiac stent and was told that he had 70% occlusion currently. Patient denies high blood pressure and states he has a strong family history of heart disease. Patient states currently he only has arm pain no chest pain. Patient states he chewed to hold aspirin this morning. Patient denies any abdominal pain patient denies nausea vomiting diarrhea per patient denies any lightheadedness dizziness or near syncopal episode. Patient denies any swelling to legs or calf tenderness. - Related Data Home Medications Medication Instructions Recorded Confirmed Lisinopril [Zestril] 20 mg PO QAM 03/27/14 09/13/18 Multivitamins, Thera [Multivitamin 1 tab PO DAILY 03/27/14 09/13/18 (formulary)] HYDROcodone/APAP 10-325MG [[place] 1 tab PO Q6H PRN 12/19/14 09/13/18 10-325] Aspirin 325 mg PO DAILY 03/10/17 09/13/18 Gabapentin 800 mg PO TID 03/10/17 09/13/18 [place]-3 Fatty Acids/Fish Oil [Fish 1 cap PO DAILY 03/10/17 09/13/18 Oil 1,000 mg Softgel] Simvastatin [Zocor] 40 mg PO HS 03/10/17 09/13/18 Metoprolol Tartrate [Lopressor] 25 mg PO BID 09/13/18 09/13/18 Sildenafil Citrate [Viagra] 100 mg PO DAILY PRN 09/13/18 09/13/18 Allergies Allergy/AdvReac Type Severity Reaction Status Date / Time No Known Allergies Allergy Verified 09/13/18 10:29 Review of Systems ROS Statement: Those systems with pertinent positive or pertinent negative responses have been documented in the HPI. ROS Other: All systems not noted in ROS Statement are negative. Past Medical History Past Medical History: Coronary Artery Disease (CAD), Hyperlipidemia, Hypertension Additional Past Medical History / Comment(s): hx-vertigo (no problem now), degenerative disc back and neck History of Any Multi-Drug Resistant Organisms: None Reported Past Surgical History: Heart Catheterization With Stent, Orthopedic Surgery Additional Past Surgical History / Comment(s): right shoulder, 4 rotator cuff surgeries on right. Total reverse arthroplasty right shoulder. colonoscopy; pain procedures Past Anesthesia/Blood Transfusion Reactions: No Reported Reaction Date of Last Stent Placement:: 03/27/2014 Past Psychological History: No Psychological Hx Reported Smoking Status: Current some day smoker Past Alcohol Use History: Occasional Past Drug Use History: Marijuana - Past Family History Father Family Medical History: Coronary Artery Disease (CAD), Myocardial Infarction ([place]) Additional Family Medical History / Comment(s): father had PVD. had surgery to repair it woke up from surgery and of a [place] Brother(s) Additional Family Medical History / Comment(s): III bypass Sister(s) Family Medical History: Myocardial Infarction ([place]) General Exam - General Exam Comments Initial Comments: GENERAL: Patient is well-developed and well-nourished. Patient is nontoxic and well- hydrated and is in mild distress. ENT: Neck is soft and supple. No significant lymphadenopathy is noted. Oropharynx is clear. Moist mucous membranes. Neck has full range of motion without eliciting any pain. EYES: The sclera were anicteric and conjunctiva were pink and moist. Extraocular movements were intact and pupils were equal round and reactive to light. Eyelids were unremarkable. PULMONARY: Unlabored respirations. Good breath sounds bilaterally. No audible rales rhonchi or wheezing was noted. CARDIOVASCULAR: There is a regular rate and rhythm without any murmurs gallops or rubs. ABDOMEN: Soft and nontender with normal bowel sounds. No palpable organomegaly was noted. There is no palpable pulsatile mass. SKIN: Skin is clear with no lesions or rashes and otherwise unremarkable. NEUROLOGIC: Patient is alert and oriented x3. Cranial nerves II through XII are grossly intact. Motor and sensory are also intact. Normal speech, volume and content. Symmetrical smile. MUSCULOSKELETAL: Normal extremities with adequate strength and full range of motion. No lower extremity swelling or edema. No calf tenderness. LYMPHATICS: No significant lymphadenopathy is noted PSYCHIATRIC: Normal psychiatric evaluation. Limitations: no limitations Course Vital Signs 09/13/18 09/13/18 09:42 10:41 Temperature 98.9 F Pulse Rate 82 72 Respiratory 20 18 Rate Blood Pressure 121/81 119/70 O2 Sat by Pulse 95 97 Oximetry Medical Decision Making - Medical Decision Making EKG shows normal sinus rhythm at a 78 bpm HI interval 250 QRS is 82 QT interval 34 QTC is 437. Patient's EKG shows no ST segment elevation or depression or T wave abnormalities are noted. I discussed smoking cessation for greater than 3 minutes. The risks of smoking were discussed with the patient including but not limited to risks of cancer, stroke, coronary artery disease and COPD. Also discussed with the patient were multiple methods of quitting smoking. Lastly we discussed the financial costs of smoking. Chest x-ray shows no acute abnormality. Patient continued to have arm pain throughout his stay. I started the patient on heparin because of his unstable angina. I admitted the patient I consult cardiology I wrote admitting orders I talked to Dr. Marks. I repeated an EKG because he continued to have arm pain. I also gave the patient Zofran because he was having some intermittent nausea. Repeat EKG showed normal sinus rhythm at 76 bpm HI interval is on a 48 QRSs 84 QT interval 380 QTC is 436. EKG shows no ST segment elevation or depression. - Lab Data Result diagrams: 09/13/18 09:54 09/13/18 09:54 Lab Results 09/13/18 09/13/18 09/13/18 Range/Units 09:54 09:54 09:54 WBC 6.1 (3.8-10.6) k/uL RBC 4.76 (4.30-5.90) m/uL Hgb 14.8 (13.0-17.5) gm/dL Hct 43.3 (39.0-53.0) % MCV 91.0 (80.0-100.0) fL MCH 31.2 (25.0-35.0) pg MCHC 34.3 (31.0-37.0) g/dL RDW 12.5 (11.5-15.5) % Plt Count 215 (150-450) k/uL Neutrophils % 54 % Lymphocytes % 34 % Monocytes % 7 % Eosinophils % 3 % Basophils % 0 % Neutrophils # 3.3 (1.3-7.7) k/uL Lymphocytes # 2.1 (1.0-4.8) k/uL Monocytes # 0.4 (0-1.0) k/uL Eosinophils # 0.2 (0-0.7) k/uL Basophils # 0.0 (0-0.2) k/uL PT 10.5 (9.0-12.0) sec INR 1.0 (<1.2) APTT 22.6 (22.0-30.0) sec Sodium 137 (137-145) mmol/L Potassium 4.5 (3.5-5.1) mmol/L Chloride 105 (98-107) mmol/L Carbon Dioxide 24 (22-30) mmol/L Anion Gap 8 mmol/L BUN 16 (9-20) mg/dL Creatinine 0.72 (0.66-1.25) mg/dL Est GFR (CKD-EPI)AfAm >90 (>60 ml/min/1.73 sqM) Est GFR (CKD-EPI)NonAf >90 (>60 ml/min/1.73 sqM) Glucose 146 H (74-99) mg/dL Calcium 9.3 (8.4-10.2) mg/dL Magnesium 1.7 (1.6-2.3) mg/dL Total Bilirubin 1.1 (0.2-1.3) mg/dL AST 27 (17-59) U/L ALT 54 (21-72) U/L Alkaline Phosphatase 43 (38-126) U/L Troponin I (0.000-0.034) ng/mL Total Protein 6.8 (6.3-8.2) g/dL Albumin 4.2 (3.5-5.0) g/dL 09/13/18 Range/Units 09:54 WBC (3.8-10.6) k/uL RBC (4.30-5.90) m/uL Hgb (13.0-17.5) gm/dL Hct (39.0-53.0) % MCV (80.0-100.0) fL MCH (25.0-35.0) pg MCHC (31.0-37.0) g/dL RDW (11.5-15.5) % Plt Count (150-450) k/uL Neutrophils % % Lymphocytes % % Monocytes % % Eosinophils % % Basophils % % Neutrophils # (1.3-7.7) k/uL Lymphocytes # (1.0-4.8) k/uL Monocytes # (0-1.0) k/uL Eosinophils # (0-0.7) k/uL Basophils # (0-0.2) k/uL PT (9.0-12.0) sec INR (<1.2) APTT (22.0-30.0) sec Sodium (137-145) mmol/L Potassium (3.5-5.1) mmol/L Chloride (98-107) mmol/L Carbon Dioxide (22-30) mmol/L Anion Gap mmol/L BUN (9-20) mg/dL Creatinine (0.66-1.25) mg/dL Est GFR (CKD-EPI)AfAm (>60 ml/min/1.73 sqM) Est GFR (CKD-EPI)NonAf (>60 ml/min/1.73 sqM) Glucose (74-99) mg/dL Calcium (8.4-10.2) mg/dL Magnesium (1.6-2.3) mg/dL Total Bilirubin (0.2-1.3) mg/dL AST (17-59) U/L ALT (21-72) U/L Alkaline Phosphatase (38-126) U/L Troponin I <0.012 (0.000-0.034) ng/mL Total Protein (6.3-8.2) g/dL Albumin (3.5-5.0) g/dL Critical Care Time Critical Care Time: Yes Total Critical Care Time: 35 Disposition Clinical Impression: Unstable angina pectoris Disposition: ADMITTED IP TO THIS HOSP Referrals: [facility],Clinic [Primary Care Provider] - 1-2 days Time of Disposition: 11:21
[2018-09-13 10:15] LABS: Basophils % (A) 0 %; Eosinophils # (A) 0.2 k/uL (0-0.7); Eosinophils % (A) 3 %; HCT 43.3 % (39.0-53.0); HGB 14.8 gm/dL (13.0-17.5); Lymphocytes # (A) 2.1 k/uL (1.0-4.8); Lymphocytes % (A) 34 %; MCH 31.2 pg (25.0-35.0); MCHC 34.3 g/dL (31.0-37.0); Mean Platelet Volume 7.2; Monocytes # (A) 0.4 k/uL (0-1.0); Monocytes % (A) 7 %; Neutrophils # (A) 3.3 k/uL (1.3-7.7); Neutrophils % (A) 54 %; Platelet Count 215 k/uL (150-450); RBC 4.76 m/uL (4.30-5.90); RDW 12.5 % (11.5-15.5); WBC 6.1 k/uL (3.8-10.6)
--- NOTE | 2018-09-13 10:18 | XR ---
EXAMINATION TYPE: XR chest 2V DATE OF EXAM: 09/13/2018 COMPARISON: 03/10/2017 TECHNIQUE: PA and lateral views submitted. HISTORY: Pain FINDINGS: The lungs are clear and there is no pneumothorax, pleural effusion, or focal pneumonia. Postsurgica l change right shoulder. Remote trauma left clavicle. No overt failure. Hypertrophic change of the sp ine. IMPRESSION: 1. No acute process.
[2018-09-13 10:24] LABS: ALT 54 U/L (21-72); AST 27 U/L (17-59); Albumin 4.2 g/dL (3.5-5.0); Alkaline Phosphatase 43 U/L (38-126); Anion Gap 8 mmol/L; Blood Urea Nitrogen 16 mg/dL (9-20); Calcium 9.3 mg/dL (8.4-10.2); Carbon Dioxide 24 mmol/L (22-30); Chloride 105 mmol/L (98-107); Glucose 146 mg/dL (74-99); Magnesium 1.7 mg/dL (1.6-2.3); Potassium 4.5 mmol/L (3.5-5.1); Sodium 137 mmol/L (137-145); Total Bilirubin 1.1 mg/dL (0.2-1.3); Total Protein 6.8 g/dL (6.3-8.2)
[2018-09-13 10:25] LABS: Partial Thromboplastin Time 22.6 sec (22.0-30.0); Prothrombin Time 10.5 sec (9.0-12.0)
[2018-09-13] MEDS ORDERED: HEPARIN SODIUM,PORCINE 5,000 UNIT/ML 1 ML VIAL IV ONE (11:15)
[2018-09-13] MEDS ORDERED: ONDANSETRON 4 MG/2 ML VIAL IVP STA (11:21)
[2018-09-13] MEDS: HEPARIN SOD,PORK IN 0.45% NACL 25,000 UNIT in 0.45% NACL 1 250ML.BAG IV SCH (11:35)
[2018-09-13] MEDS ORDERED: MORPHINE SULFATE 2 MG/ML SYRINGE IVP STA (11:43)
[2018-09-13] MEDS ORDERED: NITROGLYCERIN SL TABS 0.4 MG TAB SUBLINGUAL PRN (12:10)
[2018-09-13] MEDS: HYDROcodone/APAP 10-325MG 1 EACH TAB PO PRN ×2 (14:05→22:04)
[2018-09-13] MEDS ORDERED: HEPARIN SODIUM,PORCINE 5,000 UNIT/ML 1 ML VIAL IV PRN (18:26)
[2018-09-13] MEDS: NITROGLYCERIN OINT 1 INCH/GM PACKET TOPICAL SCH (18:47)
[2018-09-13] MEDS ORDERED: ATORVASTATIN 20 MG TAB PO SCH (21:00)
[2018-09-13] MEDS: GABAPENTIN 400 MG CAP PO SCH (22:03)
[2018-09-13] MEDS: METOPROLOL TARTRATE 25 MG TAB PO SCH (22:04)
--- NOTE | 2018-09-13 22:44 | P.HPIM ---
History of Present Illness H&P Date: 09/13/18 Chief Complaint: Chest tightness Patient is a 57-year-old male with a history of coronary artery disease status post stent placement 4 years ago, recent cardiac catheterization 2 years ago, hypertension, hyperlipidemia and cervical spinal stenosis came to ER with complaints of chest pressure. Patient says that she has been having left arm numbness and pressure-like sensation for about one week. Today morning patient states that he was having left arm pain went up to chest and felt like heavy pressure sensation in the chest. Associated with shortness of breath and na usea. No episodes of vomiting. Patient says that his last cardiac catheterization showed 70% occlusion. Patient says that he has a strong family history of heart disease. Chest pressure is constant. Patient was given nitroglycerin in the ER without much improvement. Otherwise denied any abdomi nal pain, diarrhea. No recent illnesses. No sick contacts at home. Patient does have a history of cervical spinal stenosis and supposed to have surgery about 2 months ago. But patient refuses to have surgery and currently following with different neurosurgeon. Patient also follows with pain clinic. Patient had MRI of the neck previously. Denied any numbness and tingling in the legs. No bladder bowel or bladder incontinence. No headache or dizziness or lightheadedness. EKG showed normal sinus rhythm Chest x-ray showed no acute cardio pulmonary process Troponin 1 negative Review of Systems Constitutional: Patient denies any fever or chills . No generalized weakness or weight loss. Abdomen: Patient denied nausea vomiting and diarrhea and abdominal pain. Cardiovascular: Patient does have chest pressure and short of breath no palpita tions. Respiratory: patient denied any cough is from production. No shortness of breath Neurologic: Patient denied any numbness or tingling headache. Musculoskeletal: Patient denies any complaints of joint swelling or deformity. Skin: Negative Psychiatric: Negative Endocrine: No heat or cold intolerance. No recent weight gain. Genitourinary: No dysuria or hematuria. All other 14 point ROS negative except the above Past Medical History Past Medical History: Coronary Artery Disease (CAD), Hyperlipidemia, Hypertension, Vascular Disorder Additional Past Medical History / Comment(s): Past vertigo, DDD, cervical and back pain, R femoral artery stenosis, PVD History of Any Multi-Drug Resistant Organisms: None Reported Past Surgical History: Heart Catheterization With Stent, Joint Replacement, Orthopedic Surgery Additional Past Surgical History / Comment(s): right shoulder- 4 rotator cuff surgeries, total reverse arthroplasty right shoulder, L leg procedure for valves,. 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 LIVES WITH HIS AND [place]ON IN 2 STORY HOME THAT HAS 4 PORCH STEPS AND 12 STEPS TO 2ND LEVEL. HAS 3 PET CATS. NO HOME CARE SERVICES RECEIVED. NO MEDICAL EQUIPMENT.PT SERVED IN THE [employer] WHEN YOUNGER. 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 Smoking Status: Current some day smoker Past Alcohol Use History: Occasional Additional Past Alcohol Use History / Comment(s): STARTED SMOPKING AGE 23 HAS SMOKED OFF AND ON. CURRENTLY IS SOMEDAY SMOKER MOSTLY ON WEEKENDS WHEN WATCHING BALL GAMES. A PACK WILL LAST 1 WEEK. Past Drug Use History: Marijuana Additional Drug Use History / Comment(s): OCC MARIJUANA USE-LAST several months ago. - Past Family History Father Family Medical History: Coronary Artery Disease (CAD), Myocardial Infarction ([place]) Additional Family Medical History / Comment(s): father had PVD. had surgery to repair it woke up from surgery and of a [place] Brother(s) Family Medical History: Coronary Artery Disease (CAD) Additional Family Medical History / Comment(s): Pt has 2 brothers who have had CABG Sister(s) Family Medical History: Myocardial Infarction ([place]) Additional Family Medical History / Comment(s): Pt does not recall at what age his sister had a [place] Medications and Allergies Home Medications Medication Instructions Recorded Confirmed Type Lisinopril [Zestril] 20 mg PO QAM 03/27/14 09/13/18 History Multivitamins, Thera [Multivitamin 1 tab PO DAILY 03/27/14 09/13/18 History (formulary)] HYDROcodone/APAP 10-325MG [[place] 1 tab PO Q6H PRN 12/19/14 09/13/18 History 10-325] Aspirin 325 mg PO DAILY 03/10/17 09/13/18 History Gabapentin 800 mg PO TID 03/10/17 09/13/18 History [place]-3 Fatty Acids/Fish Oil [Fish 1 cap PO DAILY 03/10/17 09/13/18 History Oil 1,000 mg Softgel] Simvastatin [Zocor] 40 mg PO HS 03/10/17 09/13/18 History Metoprolol Tartrate [Lopressor] 25 mg PO BID 09/13/18 09/13/18 History Sildenafil Citrate [Viagra] 100 mg PO DAILY PRN 09/13/18 09/13/18 History Allergies Allergy/AdvReac Type Severity Reaction Status Date / Time No Known Allergies Allergy Verified 09/13/18 10:29 Physical Exam Vitals: Vital Signs Temp Pulse Pulse Resp BP BP Pulse Ox 09/13/18 16:00 71 18 09/13/18 15:25 71 18 09/13/18 14:20 97.7 F 71 18 129/75 97 09/13/18 13:24 98.1 F 78 16 101/69 95 09/13/18 10:41 72 18 119/70 97 09/13/18 09:42 98.9 F 82 20 121/81 95 Intake and Output 09/13/18 09/13/18 09/13/18 06:59 14:59 22:59 Intake Total 270.458 Balance 270.458 Intake: Intake, IV Titration 70.458 Amount Heparin Sod,Pork in 0.45% 70.458 NaCl 25,000 unit In 0.45 % NaCl 1 250ml.bag @ 9.18 UNITS/KG/HR 9.994 mls/hr IV .Q24H [facility] Rx#: [id number] Oral 200 Other: Voiding Method Toilet Weight 108.862 kg PHYSICAL EXAMINATION: Patient is lying in the bed comfortably, no acute distress, awake alert and oriented.. HEENT: Normocephalic. Neck is supple. Pupils reactive. Nostrils clear. Oral cavity is moist. Ears reveal no drainage. Neck reveals no JVD, carotid bruits, or thyromegaly. CHEST EXAMINATION: Trachea is central. Symmetrical expansion. Lung daley clear to auscultation and percussion. CARDIAC: Normal S1, S2 with no gallops. No murmurs ABDOMEN: Soft. Bowel sounds normal. No organomegaly. No abdominal bruits. Extremities: reveal no edema. No clubbing or cyanosis Neurologically awake, alert, oriented x3 with well-coordinated movements. No focal deficits noted Skin: No rash or skin lesions. Psychiatric: Coperative. Nonsuicidal Musculoskeletal: No joint swelling or deformity. Normal range of motion. Results CBC & Chem 7: 09/13/18 09:54 09/13/18 09:54 Labs: Abnormal Lab Results - Last 24 Hours (Table) 09/13/18 09/13/18 Range/Units 09:54 16:47 APTT 31.2 H (22.0-30.0) sec Glucose 146 H (74-99) mg/dL Thrombosis Risk Factor Assmnt - DVT/VTE Prophylaxis DVT/VTE Prophylaxis: Pharmacologic Prophylaxis ordered - Choose All That Apply Any of the Below Risk Factors Present?: Yes Each Factor Represents 1 point: Age 41-60 years, Obesity (BMI >25) Other Risk Factors: No Other congenital or acquired thrombophilia - If yes, enter type in comment: No Thrombosis Risk Factor Assessment Total Risk Factor Score: 2 Thrombosis Risk Factor Assessment Level: Low Risk Assessment and Plan Assessment: Atypical chest pain. Possible unstable angina Left arm pain could also be musculoskeletal/related to cervical spinal stenosis Cervical spinal stenosis. Patient was recommended surgery by his neurosurgeon. Coronary artery disease with history of stent placement for years ago. Hypertension Hyperlipidemia Cervical disc degenerative disease Cervical and back pain. Chronic pain on follow-up in the pain clinic Right femoral artery stenosis/peripheral vascular disease History of right shoulder rotator cuff surgery/arthroplasty Nicotine addiction DVT prophylaxis plan: Patient will be continued on telemetry monitoring. Serial EKG and troponins. Continue with heparin drip. Cardiology evaluation. Can with the pain sergio gement for cervical and pain. Continue with home medications and follow closely. Further recommendations based on the clinical course. Time with Patient: Greater than 30
[2018-09-14 04:05] LABS: Cholesterol 156 mg/dL (<200); HDL Cholesterol 33 mg/dL (40-60); LDL Cholesterol,Calculated 89 mg/dL (0-99); Triglycerides 172 mg/dL (<150)
[2018-09-14] MEDS: NITROGLYCERIN OINT 1 INCH/GM PACKET TOPICAL SCH ×3 (05:32→12:52)
[2018-09-14] MEDS: LISINOPRIL 20 MG TAB PO SCH (08:00)
[2018-09-14] MEDS: GABAPENTIN 400 MG CAP PO SCH ×3 (08:00→20:56)
[2018-09-14] MEDS ORDERED: ASPIRIN 325 MG TAB PO SCH (09:00)
[2018-09-14 09:22] VITALS: RESP 18
[2018-09-14] MEDS ORDERED: ASPIRIN 325 MG TAB PO STA (10:08)
[2018-09-14] MEDS ORDERED: SODIUM CHLORIDE 0.9% 1,000 ML in EMPTY BAG 1 BAG IV ONE (10:08)
[2018-09-14] MEDS ORDERED: NITROGLYCERIN SL TABS 0.4 MG TAB SUBLINGUAL PRN (10:08)
[2018-09-14] MEDS ORDERED: ALPRAZolam 0.25 MG TAB PO PRN (10:08)
[2018-09-14] MEDS ORDERED: ATORVASTATIN 80 MG TAB PO STA (10:13)
[2018-09-14] MEDS: METOPROLOL TARTRATE 25 MG TAB PO SCH ×2 (10:16→20:57)
[2018-09-14] MEDS: HYDROcodone/APAP 10-325MG 1 EACH TAB PO PRN ×2 (10:16→20:57)
--- NOTE | 2018-09-14 11:00 | P.CRDCN ---
History of Present Illness History of present illness: This is a 57-year-old male past medical history significant for coronary artery disease status post stent placement to the mid LAD in 2015, peripheral vascular disease with evidence of 60-70% stenosis of the right common femoral artery, hypertension, dyslipidemia and chronic nicotine dependence. He has followed in the office with Dr. Kinsey one time in 2017 after his catheteriza tion. We have been asked to see him in consultation for symptoms of chest discomfort he complains of having a pressure type sensation in the midsternal region with radiation into the left arm and hand. He describes having a numb sensation in the left arm with tight feeling in his hand. His discomfort is associated with nausea, shortness of breath and dizzy lightheaded feeling. He states this has been going on intermittently throughout the previous week. This is not associated with exertion or physical activity but comes sometimes at rest sometimes with exertion. He denies associated palpitations or diaphoresis. He is seen and examined resting comfortably in bed in no acute distress. He is rather anxious and agitated regarding his discomfort he states "I know something is wrong with my heart." He states he is compliant with his medications however unfortunately he continues to smoke. EKG reveals sinus mechanism with no acute ST or T wave abnormalities noted. Chest x-ray is negative for an acute cardiopulmonary process. Laboratory data reviewed, cardiac enzymes negative 3, WBC 6.1, hemoglobin 14.8, platelets 215, sodium 137, potassium 4.5, creatinine 0.72, magnesium 1.7, LDL 89 and HDL 33. Current cardiac medications include lisinopril 20 mg daily, Lopressor 25 mg twice a day, aspirin 325 mg daily, simvastatin 40 mg daily. Most recent echocardiogram obtained 2017 reveals preserved left ventricular systolic function with ejection fraction 55-60%. Most recent cardiac catheterization done 2017 reveals left main free of stenosis, LAD with mild atherosclerotic plaque in the mid LAD with a patent stent unchanged from previous catheterization in 2015 circumflex artery normal and free of stenosis, RCA normal and free of stenosis. At that time he was noted to have 60-70% stenosis of the right common femoral artery. At the time of my exam: CONSTITUTIONAL: Denies fever. Denies chills. EYES: Denies blurred vision. Denies vision changes. Denies eye pain. EARS, NOSE, MOUTH & THROAT: Denies headache. Denies sore throat. Denies ear pain. CARDIOVASCULAR: Denies chest pain. Denies shortness of breath. Denies orthopnea. Denies PND. Denies palpitations. RESPIRATORY: Denies cough. GASTROINTESTINAL: Denies abdominal pain. Denies diarrhea. Denies constipation. Denies nausea. Denies vomiting. MUSCULOSKELETAL: Denies myalgias. Complains of left arm numbness and tight se nsation in the left hand. INTEGUMENTARY: Denies pruitis. Denies rash. NEUROLOGIC: Denies numbness. Denies tingling. Denies weakness. PSYCHIATRIC: Denies anxiety. Denies depression. ENDOCRINE: Denies fatigue. Denies weight change. Denies polydipsia. Denies polyurina. GENITOURINARY: Denies burning, hematuria or urgency with micturation. HEMATOLOGIC: Denies history of anemia. Denies bleeding. Blood pressure 112/72 heart rate in the 60s afebrile maintaining oxygen saturation on room air GENERAL: This is a 57-year-old male in no apparent distress at the time of my examination. HEENT: Head is atraumatic, normocephalic. Pupils are equal, round. Sclerae anicteric. Conjunctivae are clear. Mucous membranes of the mouth are moist. Neck is supple. There is no jugular venous distention. No carotid bruit is heard. LUNGS: Clear to auscultation no wheezes, rales or rhonchi. No chest wall ten derness is noted on palpation or with deep breathing. HEART: Regular rate and rhythm without murmurs, rubs or gallops. S1 and S2 heard. ABDOMEN: Soft, nontender. Bowel sounds are heard. No organomegaly noted. EXTREMITIES: No evidence of peripheral edema and no calf tenderness noted. VASCULAR: Radial and dorsalis pedis pulses palpated, no evidence of clubbing. NEUROLOGIC: Patient is awake, alert and oriented x3. ASSESSMENT Precordial chest pain with radiation down the arm suggestive of unstable angina. History of coronary artery disease status post stent placement to the mid LAD 2014 Peripheral vascular disease with 60-70% stenosis of the right common femoral artery Hypertension Dyslipidemia Chronic nicotine dependence PLAN We have discussed the option of proceeding with stress test versus cardiac catheterization for definitive diagnosis and the patient is requesting cardiac catheterization. I have discussed the risks, benefits and alternative therapies for the above- mentioned procedure and for both sedation/analgesia as well as necessary blood product administration, if indicated, as they pertain to this patient. The patient and his have indicated understanding and acceptance of the risks and procedures discussed. Questions have been answered appropriately. Repeat echocardiogram and Doppler study to assess cardiac structure and function. Smoking cessation highly recommended. Further recommendations to follow based upon clinical course. Thank you kindly for this consultation. Nurse Practitioner note has been reviewed, I agree with a documented findings and plan of care. Patient was seen and examined. c/o pressure in the mid-sternal region intermittently over the last week associated with nausea, shortness of breath and intermittent light headed feeling. He states the discomfort moves to his arm at times with a numb sensation and tightness to the hand. Past Medical History Past Medical History: Coronary Artery Disease (CAD), Hyperlipidemia, Hypertension, Vascular Disorder Additional Past Medical History / Comment(s): Past vertigo, DDD, cervical and back pain, R femoral artery stenosis, PVD History of Any Multi-Drug Resistant Organisms: None Reported Past Surgical History: Heart Catheterization With Stent, Joint Replacement, Orthopedic Surgery Additional Past Surgical History / Comment(s): right shoulder- 4 rotator cuff surgeries, total reverse arthroplasty right shoulder, L leg procedure for valves,. 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 LIVES WITH HIS AND STEPSON IN 2 STORY HOME THAT HAS 4 PORCH STEPS AND 12 STEPS TO 2ND LEVEL. HAS 3 PET CATS. NO HOME CARE SERVICES RECEIVED. NO MEDICAL EQUIPMENT.PT SERVED IN THE [employer] WHEN YOUNGER. 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 Smoking Status: Current some day smoker Past Alcohol Use History: Occasional Additional Past Alcohol Use History / Comment(s): STARTED SMOPKING AGE 23 HAS SMOKED OFF AND ON. CURRENTLY IS SOMEDAY SMOKER MOSTLY ON WEEKENDS WHEN WATCHING BALL GAMES. A PACK WILL LAST 1 WEEK. Past Drug Use History: Marijuana Additional Drug Use History / Comment(s): OCC MARIJUANA USE-LAST several months ago. - Past Family History Father Family Medical History: Coronary Artery Disease (CAD), Myocardial Infarction (NC) Additional Family Medical History / Comment(s): father had PVD. had surgery to repair it woke up from surgery and of a NC Brother(s) Family Medical History: Coronary Artery Disease (CAD) Additional Family Medical History / Comment(s): Pt has 2 brothers who have had CABG Sister(s) Family Medical History: Myocardial Infarction (NC) Additional Family Medical History / Comment(s): Pt does not recall at what age his sister had a NC Medications and Allergies Home Medications Medication Instructions Recorded Confirmed Type Lisinopril [Zestril] 20 mg PO QAM 03/27/14 09/13/18 History Multivitamins, Thera [Multivitamin 1 tab PO DAILY 03/27/14 09/13/18 History (formulary)] HYDROcodone/APAP 10-325MG [[place] 1 tab PO Q6H PRN 12/19/14 09/13/18 History 10-325] Aspirin 325 mg PO DAILY 03/10/17 09/13/18 History Gabapentin 800 mg PO TID 03/10/17 09/13/18 History Elmer-3 Fatty Acids/Fish Oil [Fish 1 cap PO DAILY 03/10/17 09/13/18 History Oil 1,000 mg Softgel] Simvastatin [Zocor] 40 mg PO HS 03/10/17 09/13/18 History Metoprolol Tartrate [Lopressor] 25 mg PO BID 09/13/18 09/13/18 History Sildenafil Citrate [Viagra] 100 mg PO DAILY PRN 09/13/18 09/13/18 History Allergies Allergy/AdvReac Type Severity Reaction Status Date / Time No Known Allergies Allergy Verified 09/13/18 10:29 Physical Exam Vitals: Vital Signs Temp Pulse Pulse Resp BP BP BP 09/14/18 04:00 67 17 09/14/18 00:00 68 17 09/13/18 20:00 97.7 F 82 18 112/72 09/13/18 16:00 71 18 09/13/18 15:25 71 18 09/13/18 14:20 97.7 F 71 18 129/75 09/13/18 13:24 98.1 F 78 16 101/69 09/13/18 10:41 72 18 119/70 09/13/18 09:42 98.9 F 82 20 121/81 Pulse Ox 09/14/18 04:00 09/14/18 00:00 09/13/18 20:00 09/13/18 16:00 09/13/18 15:25 09/13/18 14:20 97 09/13/18 13:24 95 09/13/18 10:41 97 09/13/18 09:42 95 Intake and Output 09/13/18 09/14/18 09/14/18 22:59 06:59 14:59 Intake Total 270.458 Balance 270.458 Intake: Intake, IV Titration 70.458 Amount Heparin Sod,Pork in 0.45% 70.458 NaCl 25,000 unit In 0.45 % NaCl 1 250ml.bag @ 9.18 UNITS/KG/HR 9.994 mls/hr IV .Q24H REPLACED BY [facility] Rx#: [id number] Oral 200 Other: Voiding Method Toilet Toilet # Voids 1 1 Results 09/13/18 09:54 09/13/18 09:54 Cardiac Enzymes 09/13/18 09/13/18 09/13/18 Range/Units 09:54 09:54 16:47 AST 27 (17-59) U/L Troponin I <0.012 <0.012 (0.000-0.034) ng/mL 09/14/18 Range/Units 00:23 AST (17-59) U/L Troponin I <0.012 (0.000-0.034) ng/mL Coagulation 09/13/18 09/13/18 09/14/18 Range/Units 09:54 16:47 00:23 PT 10.5 (9.0-12.0) sec APTT 22.6 31.2 H 47.0 H (22.0-30.0) sec Lipids 09/13/18 Range/Units 09:54 Triglycerides 172 H (<150) mg/dL Cholesterol 156 (<200) mg/dL HDL Cholesterol 33 L (40-60) mg/dL CBC 09/13/18 Range/Units 09:54 WBC 6.1 (3.8-10.6) k/uL RBC 4.76 (4.30-5.90) m/uL Hgb 14.8 (13.0-17.5) gm/dL Hct 43.3 (39.0-53.0) % Plt Count 215 (150-450) k/uL Comprehensive Metabolic Panel 09/13/18 Range/Units 09:54 Sodium 137 (137-145) mmol/L Potassium 4.5 (3.5-5.1) mmol/L Chloride 105 (98-107) mmol/L Carbon Dioxide 24 (22-30) mmol/L BUN 16 (9-20) mg/dL Creatinine 0.72 (0.66-1.25) mg/dL Glucose 146 H (74-99) mg/dL Calcium 9.3 (8.4-10.2) mg/dL AST 27 (17-59) U/L ALT 54 (21-72) U/L Alkaline Phosphatase 43 (38-126) U/L Total Protein 6.8 (6.3-8.2) g/dL Albumin 4.2 (3.5-5.0) g/dL Current Medications Generic Name Dose Route Start Last Admin Trade Name Freq PRN Reason Stop Dose Admin Hydrocodone Bitart/Acetaminophen 1 each 09/13/18 13:54 09/13/18 22:04 [place] 10 PO 1 each Q6H PRN Administration Pain Aspirin 325 mg 09/14/18 09:00 Aspirin PO DAILY REPLACED BY [facility] Atorvastatin Calcium 20 mg 09/13/18 21:00 09/13/18 22:04 Lipitor PO 20 mg HS AMEENA Administration Gabapentin 800 mg 09/13/18 22:00 09/13/18 22:03 Neurontin PO 800 mg TID REPLACED BY [facility] Administration Heparin Sodium (Porcine) 0 unit 09/13/18 18:26 09/13/18 18:38 Heparin IV 4,000 unit PER PROTOCOL PRN Administration Low PTT Protocol Heparin Sodium/Sodium Chloride 250 mls @ 9.994 mls/hr 09/13/18 11:15 09/13/18 18:38 25,000 unit/ Sodium Chloride IV 12.07 units/kg/hr .Q24H REPLACED BY [facility] 13.14 mls/hr Titration Protocol 9.18 UNITS/KG/HR Lisinopril 20 mg 09/14/18 09:00 Zestril PO QAM REPLACED BY [facility] Metoprolol Tartrate 25 mg 09/13/18 21:00 09/13/18 22:04 Lopressor PO 25 mg BID AMEENA Administration Nitroglycerin 1 inch 09/13/18 18:00 09/14/18 05:32 Nitro-Bid Oint TOPICAL Not Given Q6HR REPLACED BY [facility] Nitroglycerin 0.4 mg 09/13/18 12:10 Nitrostat SUBLINGUAL Q5M PRN Chest Pain Intake and Output 03/12/19 03/13/19 03/13/19 22:59 06:59 14:59 Intake Total 270.458 Balance 270.458 Intake: Intake, IV Titration 70.458 Amount Heparin Sod,Pork in 0.45% 70.458 NaCl 25,000 unit In 0.45 % NaCl 1 250ml.bag @ 9.18 UNITS/KG/HR 9.994 mls/hr IV .Q24H REPLACED BY [facility] Rx#: [id number] Oral 200 Other: Voiding Method Toilet Toilet # Voids 1 1 09/13/18 09:54 09/13/18 09:54
[2018-09-14] MEDS ORDERED: MULTIVITAMINS, THERA 1 EACH TAB PO SCH (12:00)
[2018-09-14] MEDS: ALPRAZolam 0.5 MG TAB PO PRN (12:51)
[2018-09-14] MEDS: HEPARIN SOD,PORK IN 0.45% NACL 25,000 UNIT in 0.45% NACL 1 250ML.BAG IV SCH (12:54)
[2018-09-14] MEDS ORDERED: SODIUM CHLORIDE 0.9% 500 ML 500 ML IV ONE (13:00)
[2018-09-14] MEDS ORDERED: LIDOCAINE 1% INJ 10MG/ML (20 ML MDV) ONE (13:00)
[2018-09-14] MEDS ORDERED: HEPARIN SODIUM 1,000 UN/ML (10ML VL) ONE (13:00)
[2018-09-14] MEDS ORDERED: fentaNYL (PF) 50 MCG/ML 2 ML AMP ONE (13:00)
[2018-09-14] MEDS ORDERED: VERAPAMIL 2.5 MG/ML 2 ML AMP ONE (13:00)
[2018-09-14] MEDS ORDERED: fentaNYL (PF) 50 MCG/ML 2 ML AMP IV ONE (13:23)
[2018-09-14] MEDS ORDERED: LIDOCAINE 1% INJ 10MG/ML (20 ML MDV) SQ ONE (13:30)
[2018-09-14] MEDS ORDERED: MIDAZOLAM 2 MG/2 ML VIAL IV ONE (13:30)
[2018-09-14] MEDS ORDERED: VERAPAMIL SYRINGE (5 MG/10 ML) INTRAARTER ONE (13:31)
[2018-09-14] MEDS ORDERED: HEPARIN SODIUM 1,000 UN/ML (10ML VL) IV ONE (13:37)
--- NOTE | 2018-09-14 13:40 | ECHOF ---
Referral Reason: MEASUREMENTS -------- HEIGHT: 180.3 cm WEIGHT: 108.9 kg BP: 112/72 RVIDd: 3.3 cm (< 3.3) IVSd: 1.2 cm (0.6 - 1.1) LVIDd: 5.3 cm (3.9 - 5.3) LVPWd: 1.2 cm (0.6 - 1.1) IVSs: 1.6 cm LVIDs: 3.1 cm LVPWs: 1.6 cm LA Diam: 3.5 cm (2.7 - 3.8) LAESV Index (A-L): 20.01 ml/m Ao Diam: 3.3 cm (2.0 - 3.7) AV Cusp: 2.3 cm (1.5 - 2.6) MV EXCURSION: 25.683 mm (> 18.000) MV EF SLOPE: 119 mm/s (70 - 150) EPSS: 0.8 cm MV E Brennon: 0.80 m/s MV DecT: 201 ms MV A Brennon: 0.70 m/s MV E/A Ratio: 1.13 RAP: 5.00 mmHg RVSP: 33.95 mmHg FINDINGS -------- Sinus rhythm. This was a technically adequate study. The left ventricular size is normal. There is borderline concentric left ventricular hypertrophy. Overall left ventricular systolic function is normal with, an EF between 55 - 60 %. The right ventricle is mildly enlarged. Normal LA size by volume 22+/-6 ml/m2. The right atrium is normal in size. The aortic valve is trileaflet, and appears structurally normal. No aortic stenosis or regurgitation. The mitral valve is normal. There is trace mitral regurgitation. Mild tricuspid regurgitation present. There is no evidence of pulmonary hypertension. The right v entricular systolic pressure, as measured by Doppler, is 33.95mmHg. Trace/mild (physiologic) pulmonic regurgitation. The aortic root size is normal. Normal inferior vena cava with normal inspiratory collapse consistent with estimated right atrial pre ssure of 5 mmHg. The inferior vena cava is mildly dilated. There is no pericardial effusion. CONCLUSIONS -------- 1. Sinus rhythm. 2. This was a technically adequate study. 3. The left ventricular size is normal. 4. There is borderline concentric left ventricular hypertrophy. 5. Overall left ventricular systolic function is normal with, an EF between 55 - 60 %. 6. The right ventricle is mildly enlarged. 7. Normal LA size by volume 22+/-6 ml/m2. 8. The aortic valve is trileaflet, and appears structurally normal. No aortic stenosis or regurgitati on. 9. There is trace mitral regurgitation. 10. Mild tricuspid regurgitation present. 11. There is no evidence of pulmonary hypertension. 12. Trace/mild (physiologic) pulmonic regurgitation. 13. The aortic root size is normal. 14. Normal inferior vena cava with normal inspiratory collapse consistent with estimated right atrial pressure of 5 mmHg. 15. The inferior vena cava is mildly dilated. 16. There is no pericardial effusion. CHAIN SALES REPRESENTATIVE: Letha Perez RDCS
[2018-09-14] MEDS ORDERED: IOPAMIDOL-370 125ML BTL INJ ONE (13:41)
[2018-09-14] MEDS ORDERED: RX INFO: IV CONTRAST WAS GIVEN 1 EACH MISC MISCELLANE PRN (13:55)
[2018-09-14] MEDS ORDERED: SODIUM CHLORIDE 0.9% 1,000 ML IV SCH (14:00)
--- NOTE | 2018-09-14 16:44 | CC ---
CARDIAC CATHETERIZATION REPORT Mr. Colin is a 57-year-old male with known history of coronary artery disease, status post percutaneous revascularization in 2014 and chronic tobacco use who presented with symptoms of chest discomfort. His symptoms, according to him, are the same way he felt prior to his stenting. Because of his presenting symptoms and his prior history, recommendation was made regarding cardiac catheterization. The procedure, its risk and complications were discussed with the patient, who was in full understanding and agreement. DESCRIPTION OF PROCEDURE: Patient was brought to the manager lab in fasting, semi-sedated state after receiving fentanyl and Benadryl and achieving a moderate conscious sedated state. Using Xylocaine anesthesia and Seldinger technique, a 6-Greek sheath was introduced in the right radial artery. Selective right and left coronary angiography was performed using 5- Greek, 3-1/2 Bend, right and left Tere catheters. Multiple views were taken of the arteries, including hemiaxial views. Following that, a 5-Greek tight pigtail catheter was introduced in the left ventricle and a 30-degree GOODWIN of the left ventricle was obtained. Following that, catheter and sheaths were removed. Hemostasis was obtained with deployment of a TR band. There was no immediate complication. The patient was returned to his room in stable condition. FINDINGS: LEFT MAIN: This is a short-sized vessel bifurcating into the left circumflex and left anterior descending artery. Left main coronary artery has no evidence of high-grade stenosis. LEFT ANTERIOR DESCENDING ARTERY: This is a large-sized vessel reaching toward the apex with a wrap around the apex segment, giving rise to a moderate-sized diagonal branch at the site of the prior stent. There is evidence of mild intimal restenosis of 10% to 20%. The rest of the vessel has no high-grade stenosis. LEFT CIRCUMFLEX: This is a large, non-dominant vessel giving rise to 2 obtuse marginal branches. The second one is large in caliber. The left circumflex as well as its branches have no evidence of obstructive disease. RIGHT CORONARY ARTERY: This is a large dominant vessel bifurcating into PDA and posterolateral segment and branches. The right coronary artery in mid segment has 10% plaque. The rest of the vessel has no high-grade stenosis. LEFT VENTRICULOGRAM: Left ventriculogram was presented in 30-degree GOODWIN view and revealed normal left ventricular size and systolic function. Ejection fraction 60%. There was no significant mitral regurgitation. HEMODYNAMICS: There was no gradient across the aortic valve. The left ventricular end- diastolic pressure was 16 to 20 mmHg. CONCLUSION: 1. Patent stent to the left anterior descending coronary artery with mild intimal restenosis. 2. Mild disease in the mid right coronary artery. 3. Normal left ventricular size and systolic function. RECOMMENDATIONS: In view of findings and anatomy, I have recommended continued medical therapy with the aggressive risk factor modifications that have been initiated. The importance of smoking cessation was discussed with the patient, who is in full understanding and agreement. Duration of procedure: 17 minutes. MMODL / IJN: [id number] /
[2018-09-14] MEDS ORDERED: ATORVASTATIN 20 MG TAB PO STA (20:47)
[2018-09-15] MEDS: HYDROcodone/APAP 10-325MG 1 EACH TAB PO PRN ×2 (05:01→12:54)
[2018-09-15] MEDS: METOPROLOL TARTRATE 25 MG TAB PO SCH (08:04)
[2018-09-15] MEDS: GABAPENTIN 400 MG CAP PO SCH (08:04)
[2018-09-15] MEDS: ALPRAZolam 0.5 MG TAB PO PRN (08:10)
[2018-09-15] MEDS ORDERED: ASPIRIN 81 MG PO SCH (09:00)
--- NOTE | 2018-09-15 10:00 | P.PN ---
Subjective Progress Note Date: 09/15/18 This is a pleasant somewhat anxious 57-year-old gentleman with a history of CAD, status post percutaneous revascularization in 2013, chronic tobacco use, hyperlipidemia and family history of CAD. Presented with symptoms of left-sided chest discomfort radiating down his arm. He underwent cardiac catheterization yesterday. The right radial artery which revealed patent stent in the LAD with mild intimal restenosis and mild disease in the mid RCA with a normal LV size and systolic function. Echocardiogram also showed normal LV systolic function with ejection fraction of 55-60% with no significant valvular abnormalities. Upon examination, patient is feeling quite a bit better today. His chest disc omfort has improved. He still complains of some stiffness in his left hand and wrist. He apparently was told at one time that his cervical spine was affected by arthritis. Today he is verbalizing significant concerns regarding a blockage in his right common femoral artery that was visualized during cardiac catheterization done in March 2017 at which time he was told was about 60- 70%. He does have complaints of some numbness and tingling in his left leg and has known spinal stenosis affecting his lumbar spine. He has not had any peripheral workup done. Objective - Vital Signs Vital signs: Vital Signs Temp 98.0 F 09/15/18 08:00 Pulse 74 09/15/18 08:00 Resp 18 09/15/18 08:00 BP 120/81 09/15/18 08:00 Pulse Ox 97 09/15/18 08:00 Intake & Output 09/14/18 09/15/18 09/15/18 18:59 06:59 18:59 Intake Total 680 420 Balance 680 420 Intake: IV 200 Oral 480 420 Other: Voiding Method Toilet Toilet Toilet # Voids 1 - Exam PHYSICAL EXAMINATION: HEENT: Head is atraumatic, normocephalic. Pupils equal, round. Neck is supple. There is no elevated jugular venous pressure. HEART EXAMINATION: Heart sounds regular, S1 and S2 normal. No murmur or gallop heard. CHEST EXAMINATION: Lungs are clear to auscultation and precussion. No chest wall tenderness is noted on palpation or with deep breathing. ABDOMEN: Soft, obese, nontender. Bowel sounds are heard. No organomegaly noted. EXTREMITIES: 2+ peripheral pulses with no evidence of peripheral edema and no calf tenderness noted. Right radial puncture site soft without ecchymosis or hematoma. NEUROLOGIC patient is awake, alert and oriented x3. . - Labs CBC & Chem 7: 09/13/18 09:54 09/13/18 09:54 Assessment and Plan Assessment: #1 precordial chest pain with radiation down the arm, likely secondary to cervical spine #2 history of CAD, status post stent placement to the mid LAD 2013 #3 peripheral vascular disease with a mention of stenosis of the right common femoral artery of about 60-70% on a catheterization in 2017 #4 hypertension #5 dyslipidemia #6 chronic nicotine dependence #7 noncompliance Plan: From cardiology's perspective, patient may be discharged home today. He will follow-up in the office in about 2 weeks at which time we will schedule the patient for arterial ultrasound of the lower extremities to assess degree of PAD. I had a long discussion with the patient regarding importance of regular follow-up, medication compliance, smoking cessation and diet and exercise. NON CDL DRIVER note has been reviewed, I agree with a documented findings and plan of care. Patient was seen and examined.
[2018-09-15 11:39] VITALS: BP 109/72; PULSE 67; TEMP 98.4
[2018-09-15] MEDS ORDERED: KETOROLAC 30 MG/ML 1 ML VIAL IM STA (12:42)
[2018-09-15] MEDS ORDERED: ATORVASTATIN 20 MG TAB PO SCH (21:00)
--- NOTE | 2018-10-02 22:11 | P.PN ---
Subjective Progress Note Date: 09/14/18 Principal diagnosis: Chest pain Patient is a 57-year-old male with a history of coronary artery disease status post stent placement 4 years ago, recent cardiac catheterization 2 years ago, hypertension, hyperlipidemia and cervical spinal stenosis came to ER with complaints of chest pressure. Patient says that she has been having left arm numbness and pressure-like sensation for about one week. Today morning patient states that he was having left arm pain went up to chest and felt like heavy pressure sensation in the chest. Associated with shortness of breath and nausea. No episodes of vomiting. Patient says that his last cardiac catheterization showed 70% occlusion. Patient says that he has a strong family history of heart disease. Chest pressure is constant. Patient was given nitroglycerin in the ER without much improvement. Otherwise denied any abdominal pain, diarrhea. No recent illnesses. No sick contacts at home. Patient does have a history of cervical spinal stenosis and supposed to have surgery about 2 months ago. But patient refuses to have surgery and currently following with different neurosurgeon. Patient also follows with pain clinic. Patient had MRI of the neck previously. Denied any numbness and tingling in the legs. No bladder bowel or bladder incontinence. No headache or dizziness or lightheadedness. EKG showed normal sinus rhythm Chest x-ray showed no acute cardio pulmonary process Troponin 1 negative 09/14/2018 Patient denied any complaints of chest pain or worsening shortness of breath today. Cardiology is planning for cardiac catheterization. Patient is still complaining of neck pain which is fairly controlled with pain medications. Patient is also having anxiety issues. No fever no chills. No nausea vomiting or abdominal pain. Current medications reviewed. Objective - Vital Signs Vital signs: Vital Signs Temp 98.4 F 09/15/18 11:38 Pulse 67 09/15/18 11:38 Resp 18 09/15/18 11:38 BP 109/72 09/15/18 11:38 Pulse Ox 96 09/15/18 11:38 - Exam PHYSICAL EXAMINATION: Patient is lying in the bed comfortably, no acute distress, awake alert and oriented.. HEENT: Normocephalic. Neck is supple. Pupils reactive. Nostrils clear. Oral cavity is moist. Ears reveal no drainage. Neck reveals no JVD, carotid bruits, or thyromegaly. CHEST EXAMINATION: Trachea is central. Symmetrical expansion. Lung daley clear to auscultation and percussion. CARDIAC: Normal S1, S2 with no gallops. No murmurs ABDOMEN: Soft. Bowel sounds normal. No organomegaly. No abdominal bruits. Extremities: reveal no edema. No clubbing or cyanosis Neurologically awake, alert, oriented x3 with well-coordinated movements. No focal deficits noted Skin: No rash or skin lesions. Psychiatric: Coperative. Nonsuicidal Musculoskeletal: No joint swelling or deformity. Normal range of motion. - Labs CBC & Chem 7: 09/13/18 09:54 09/13/18 09:54 Assessment and Plan Assessment: Atypical chest pain. Possible unstable angina Left arm pain could also be musculoskeletal/related to cervical spinal stenosis Cervical spinal stenosis. Patient was recommended surgery by his neurosurgeon. Coronary artery disease with history of stent placement for years ago. Hypertension Hyperlipidemia Cervical disc degenerative disease Cervical and back pain. Chronic pain on follow-up in the pain clinic Right femoral artery stenosis/peripheral vascular disease History of right shoulder rotator cuff surgery/arthroplasty Nicotine addiction DVT prophylaxis plan: Patient will be continued on telemetry monitoring. Serial EKG and troponins. Continue with heparin drip. Cardiology evaluation. Plan for cardiac catheterization today. Continue with the pain management for cervical and pain. Continue with home medications and follow closely. Further recommendations based on the clinical course. Time with Patient: Greater than 30
--- NOTE | 2018-10-02 22:13 | P.DS ---
Providers Date of admission: 09/13/18 12:10 Expected date of discharge: 09/15/18 Attending physician: Nadir Marks Consults: 09/13/18 12:10 Consult Physician Urgent Consulting Provider: [facility] Consult Reason/Comments: Unstable angina Do you want consulting provider notified?: Yes Primary care physician: [facility] Hospital Course: Discharge diagnosis Atypical chest pain. Possible unstable angina. Status post cardiac catheterization with normal coronaries. Left arm pain could also be musculoskeletal/related to cervical spinal stenosis Cervical spinal stenosis. Patient was recommended surgery by his neurosurgeon. Coronary artery disease with history of stent placement for years ago. Hypertension Hyperlipidemia Cervical disc degenerative disease Cervical and back pain. Chronic pain on follow-up in the pain clinic Right femoral artery stenosis/peripheral vascular disease History of right shoulder rotator cuff surgery/arthroplasty Nicotine addiction DVT prophylaxis Hospital course Patient is a 57-year-old male with a history of coronary artery disease status post stent placement 4 years ago, recent cardiac catheterization 2 years ago, hypertension, hyperlipidemia and cervical spinal stenosis came to ER with complaints of chest pressure. Patient says that she has been having left arm numbness and pressure-like sensation for about one week. Today morning patient states that he was having left arm pain went up to chest and felt like heavy pressure sensation in the chest. Associated with shortness of breath and nausea. No episodes of vomiting. Patient says that his last cardiac catheterization showed 70% occlusion. Patient says that he has a strong family history of heart disease. Chest pressure is constant. Patient was given nitroglycerin in the ER without much improvement. Otherwise denied any abdominal pain, diarrhea. No recent illnesses. No sick contacts at home. Patient does have a history of cervical spinal stenosis and supposed to have surgery about 2 months ago. But patient refuses to have surgery and currently following with different neurosurgeon. Patient also follows with pain clinic. Patient had MRI of the neck previously. Denied any numbness and tingling in the legs. No bladder bowel or bladder incontinence. No headache or dizziness or lightheadedness. EKG showed normal sinus rhythm Chest x-ray showed no acute cardio pulmonary process Troponin 1 negative 09/14/2018 Patient denied any complaints of chest pain or worsening shortness of breath today. Cardiology is planning for cardiac catheterization. Patient is still complaining of neck pain which is fairly controlled with pain medications. Patient is also having anxiety issues. No fever no chills. No nausea vomiting or abdominal pain. 09/15/2018 Patient was seen and examined. Denied any complaints of chest pain. Neck pain and shoulder pain is stable and controlled with pain medications. Stable to be discharged home. Patient was continued on telemetry monitoring. Serial EKG and troponins negative. Continue with heparin drip. Cardiology evaluation. Status post cardiac catheterization and found have normal coronaries.. Continue with the pain management for cervical and pain. Patient is stable to be discharged home. PHYSICAL EXAMINATION: Patient is lying in the bed comfortably, no acute distress, awake alert and oriented.. HEENT: Normocephalic. Neck is supple. Pupils reactive. Nostrils clear. Oral cavity is moist. Ears reveal no drainage. Neck reveals no JVD, carotid bruits, or thyromegaly. CHEST EXAMINATION: Trachea is central. Symmetrical expansion. Lung daley clear to auscultation and percussion. CARDIAC: Normal S1, S2 with no gallops. No murmurs ABDOMEN: Soft. Bowel sounds normal. No organomegaly. No abdominal bruits. Extremities: reveal no edema. No clubbing or cyanosis Neurologically awake, alert, oriented x3 with well-coordinated movements. No focal deficits noted Skin: No rash or skin lesions. Psychiatric: Coperative. Nonsuicidal Musculoskeletal: No joint swelling or deformity. Normal range of motion. Discharge vitals reviewed. Patient Condition at Discharge: Stable Plan - Discharge Summary Discharge Rx Participant: No New Discharge Prescriptions: Continue Multivitamins, Thera [Multivitamin (formulary)] 1 tab PO DAILY Lisinopril [Zestril] 20 mg PO QAM HYDROcodone/APAP 10-325MG [Guys 10-325] 1 tab PO Q6H PRN PRN Reason: Pain Mcrae [place]-3 Fatty Acids/Fish Oil [Fish Oil 1,000 mg Softgel] 1 cap PO DAILY Gabapentin 800 mg PO TID Aspirin 325 mg PO DAILY Simvastatin [Zocor] 40 mg PO HS Sildenafil Citrate [Viagra] 100 mg PO DAILY PRN PRN Reason: E.D. Metoprolol Tartrate [Lopressor] 25 mg PO BID Discharge Medication List Lisinopril [Zestril] 20 mg PO QAM 03/27/14 [History] Multivitamins, Thera [Multivitamin (formulary)] 1 tab PO DAILY 03/27/14 [History] HYDROcodone/APAP 10-325MG [Guys 10-325] 1 tab PO Q6H PRN 12/19/14 [History] Aspirin 325 mg PO DAILY 03/10/17 [History] Gabapentin 800 mg PO TID 03/10/17 [History] Mcrae [place]-3 Fatty Acids/Fish Oil [Fish Oil 1,000 mg Softgel] 1 cap PO DAILY 03/10/17 [History] Simvastatin [Zocor] 40 mg PO HS 03/10/17 [History] Metoprolol Tartrate [Lopressor] 25 mg PO BID 09/13/18 [History] Sildenafil Citrate [Viagra] 100 mg PO DAILY PRN 09/13/18 [History] Follow up Appointment(s)/Referral(s): Enrique Orozco MD [STAFF PHYSICIAN] - 09/27/18 4:30 pm (follow up with Dr. Orozco regarding site check.) [facility],Clinic [Primary Care Provider] - Patient Instructions/Handouts: Chest Pain (DC), Heart Healthy Diet (DC), Heart Catheterization (DC) Discharge Disposition: HOME SELF-CARE
== END 2018-09-15 13:12 | disposition home or self-care (01) ==
LOC: EC 09:40 → 1SOBS 12:10
PROVIDERS: ADMIT Internal Medicine; ATTEND Internal Medicine
DX: I25.10 Atherosclerotic heart disease of native coronary artery without angina pectoris (principal); T82.855A Stenosis of coronary artery stent, initial encounter; F41.9 Anxiety disorder, unspecified; G89.29 Other chronic pain; Y83.8 Other surgical procedures as the cause of abnormal reaction of the patient, or of later complication, without mention of misadventure at the time of the procedure; E78.5 Hyperlipidemia, unspecified; M48.061 Spinal stenosis, lumbar region without neurogenic claudication; I10 Essential (primary) hypertension; I70.201 Unspecified atherosclerosis of native arteries of extremities, right leg; F17.210 Nicotine dependence, cigarettes, uncomplicated; M48.02 Spinal stenosis, cervical region; Z71.6 Tobacco abuse counseling; Z96.611 Presence of right artificial shoulder joint; Z91.19 Patient's noncompliance with other medical treatment and regimen; Z71.3 Dietary counseling and surveillance; Z79.899 Other long term (current) drug therapy; Z79.82 Long term (current) use of aspirin; Z82.49 Family history of ischemic heart disease and other diseases of the circulatory system
CPT/HCPCS: 96366 ×3; 96376 ×2; 96361; 96365; 96375; 99291; 36415; 93005; 93306; 93458; 80061; 80053; 83735; 84484 ×2; 85025; 85610; 85730 ×2; 71046; G0378 ×3; C1894; C1769; J2250; J1644 ×3; J2405; J2001; J3010; J1885; J2270; Q9967

== ENCOUNTER → 2021-12-10 | Outpatient (CLI) | payer OTHER ==
--- NOTE | 2021-12-11 06:19 | MR ---
EXAMINATION TYPE: MR brain wo/w con DATE OF EXAM: 12/10/2021 COMPARISON: None HISTORY: Personal history of benign neoplasm of brain, dizziness CONTRAST: Standard multiplanar, multisequence MRI departmental protocol images were obtained without contrast a nd with 11 mL intravenous Gadavist gadolinium contrast. Multiplanar multi echo imaging of the brain without and with IV contrast. Diffusion images show no evidence of an acute infarct. The ventricles have normal size. There is no m ass effect or midline shift. No sign of intracranial hemorrhage. There is a 2 x 1 cm mass in the posterior fossa on the left side which is slightly impinging on the p ons and has broad attachment with the petrous portion of the temporal bone and consistent with a meni ngioma. This shows uniform dense enhancement with contrast. There are some scattered white matter high signal foci measuring up to 7 mm in the periventricular wh ite matter. Total numbers approximately 15. Most of these are less than 4 mm. There is no evidence of orbital mass. Sella turcica is intact. Corpus callosum is intact. IMPRESSION: There is a meningioma in the posterior fossa on the left side adjacent to the temporal bone with some slight effacement of the carlie. No evidence of any edema in the carlie. Multiple white matter high signal foci could be microvascular ischemia or demyelinating disease.
== END | disposition home or self-care (01) ==
LOC: RADMRIMAIN 09:08
PROVIDERS: ATTEND Nurse Practitioner Acute Care
DX: D32.9 Benign neoplasm of meninges, unspecified (principal)
CPT/HCPCS: 70553; A9585